=== PATIENT | female | born 1985 | race Two or more races ===

== ENCOUNTER 2020-06-10 10:54 | Outpatient (REF) | payer MEDICAID, SELFPAY ==
--- NOTE | 2020-06-10 | MM_ITS ---
EXAMINATION: MM SCREENING DIGITAL BREAST TOMOSYNTHESIS, BILATERAL CLINICAL INFORMATION: Screening. Asymptomatic. Age 35. Prereduction screening. The lifetime risk of breast cancer based on the Tyrer-Cuzick Model is 9%. COMPARISON: Mammography: 01/14/2018 (diagnostic baseline) TECHNIQUE: Digital breast tomosynthesis is performed in both the craniocaudal and mediolateral oblique views along with computer-aided detection (CAD). Synthesized 2D images are generated from the tomosynthesis. FINDINGS: There are scattered areas of fibroglandular density (ACR BI-RADS breast composition Category b). There are no significant masses, abnormal calcifications, or other abnormalities. No developing density. The skin contours are smooth. No significant changes. MM/MM tomosynthesis screening BI IMPRESSION: No mammographic evidence of malignancy. ASSESSMENT: BI-RADS 1: Negative RECOMMENDATION: Routine annual mammography screening. This patient's information was entered into a reminder system with a target due date for their next mammogram.
--- NOTE | 2020-06-10 11:38 | ECG_ITS ---
Test Reason : PREOP Blood Pressure : / mmHG Vent. Rate : 071 BPM Atrial Rate : 071 BPM P-R Int : 142 ms QRS Dur : 070 ms QT Int : 390 ms P-R-T Axes : 058 041 045 degrees QTc Int : 423 ms Normal sinus rhythm Normal ECG No previous ECGs available Referred By: Nonstaff Physician Electronically Signed By:ALANA LUGO MD
[2020-06-10 11:55] LABS: MANUAL DIFF FLAG NO
[2020-06-10 12:08] LABS: Prothrombin Time 12.3 SEC (10.8-13.0)
[2020-06-10 12:11] LABS: Partial Thromboplastin Time 33.2 SEC (24.1-38.0)
[2020-06-10 12:12] LABS: Basophils Absolute Auto 0.1 X10*3/uL (0.0-0.2); Basophils Percent Auto 0.7 % (0-2); Eosinophils Percent Auto 0.2 % (0-4); Hematocrit 34.3 % (37-47); Hemoglobin 11.5 g/dl (12.0-16.0); Imm Gran Abs Auto 0.05 X10*3/uL (0.00-0.03); Imm Gran Pct Auto 0.6 % (0.0-0.4); Lymphocytes Absolute Auto 2.2 X10*3/uL (1.2-4.9); Lymphocytes Percent Auto 26.6 % (20-40); Mean Corpuscular HGB Conc 33.5 g/dl (31.0-35.0); Mean Corpuscular Hemoglobin 30.6 pg (27.0-33.0); Mean Corpuscular Volume 91.2 fL (80-98); Mean Platelet Volume 10.5 fL (9.4-12.3); Monocytes Absolute Auto 0.6 X10*3/uL (0.1-1.2); Monocytes Percent Auto 7.9 % (2-11); Neutrophils Absolute Auto 5.2 X10*3/uL (2.0-8.3); Platelet Count 355 X10*3/uL (160-400); Red Blood Count 3.76 X10*6/uL (4.20-5.50); Red Cell Distribution Width 12.1 % (11.0-16.0); White Blood Count 8.1 X10*3/uL (4.8-10.8)
[2020-06-10 12:34] LABS: Alanine Aminotransferase 21 U/L (0-31); Albumin Level 4.3 g/dL (3.5-5.0); Alkaline Phosphatase 52 U/L (39-117); Anion Gap 11 (12-20); Aspartate Amino Transferase 21 U/L (5-31); Bilirubin Total 0.9 mg/dL (0.0-1.0); Blood Urea Nitrogen 14 mg/dL (9-16); Calcium 8.8 mg/dL (8.4-10.2); Carbon Dioxide 26 mmol/L (22-29); Chloride 106 mmol/L (96-108); Estimated Glomerular Filt Rate > 60; Glucose Random 74 mg/dL (60-115); Potassium 4.4 mmol/l (3.3-5.1); Sodium 139 mmol/L (135-145); Total Protein 6.9 g/dL (6.5-8.0)
[2020-06-10 12:35] LABS: HIV AB/AG Nonreactive (Nonreactive); HIV Num 1 0.15 S/CO (0.00-0.99)
[2020-06-10 12:42] LABS: Thyroid Stimulating Hormone 2.48 uIU/mL (0.32-4.0)
== END 2020-06-10 10:55 | disposition home or self-care (01) ==
LOC: HO.MAMMO 10:54
DX: Z12.31 Encounter for screening mammogram for malignant neoplasm of breast (principal); Z01.818 Encounter for other preprocedural examination; Z11.4 Encounter for screening for human immunodeficiency virus [HIV]; Z20.828 Contact with and (suspected) exposure to other viral communicable diseases
CPT/HCPCS: 36415; 77063; 77067; 80053; 84443; 85025; 85610; 85730; 87389; 93005; U0003

== ENCOUNTER 2020-06-22 21:13 | Emergency (ER) | payer MEDICAID, SELFPAY ==
--- NOTE | 2020-06-22 21:28 | CT_ITS ---
EXAMINATION: CT ABDOMEN AND PELVIS WITHOUT CONTRAST CLINICAL INFORMATION: 35-year-old female with left-sided flank pain and hematuria. History of tubal ligation. COMPARISON: Abdominal ultrasound 01/09/2018 and pelvic ultrasound 09/18/2017 TECHNIQUE: Multidetector volumetric imaging was performed from the superior aspect of the liver through the pubic symphysis. Sagittal and coronal reformatted images were obtained on the technologist's workstation. This CT examination was performed using dose optimization techniques as appropriate, variously including the following: *Automated exposure control *Adjustment of mA and/or kV according to patient size (this includes techniques or standardized protocols for targeted exams where dose is matched to indication/reason for exam; i.e. extremities or head) *Use of iterative reconstruction technique DLP: 471 mGy-cm FINDINGS: Visualized lung bases are well aerated. The liver demonstrates normal size, contour and attenuation. The gallbladder is decompressed. The pancreas, spleen and adrenal glands are unremarkable. Again noted are asymmetrically sized kidneys with the left kidney measuring approximately 11.5 cm in maximum dimension and the right kidney measuring approximately 7.5 cm in maximum dimension. There is some cortical irregularity particularly along the posterior aspect of the right kidney. There is a 1 cm cyst within the upper pole of the right kidney. No renal calculi or hydronephrosis of either kidney. Normal caliber loops of small and large bowel. Normal appendix. Nonaneurysmal abdominal aorta. The bladder is decompressed and therefore not accurately evaluated. Unremarkable CT appearance of the uterus. Trace amount of free pelvic fluid is likely physiologic. Suspected 3 [address] left adnexal cyst. CT/CT abdomen pelvis wo con IMPRESSION: 1. No renal calculi or hydronephrosis of either kidney. There is similar atrophy of the right kidney. 2. Suspected 3 cm left adnexal cyst.
--- NOTE | 2020-06-22 21:30 | ED_ITS ---
HPI - Abdominal Pain General Chief Complaint: Abdominal Pain Stated Complaint: abd pain Time Seen by Provider: 06/22/20 21:23 Source: patient Mode of arrival: ambulatory History of Present Illness HPI narrative: Patient states of 2-3 days of lower mid abdominal pain with blood in urine. Also states of left flank pain. Flank pain radiating the abdomen. Patient states when bends over has bilateral lower back pain also. Denies fevers or chills. Denies nausea or vomiting. Denies vaginal bleeding Pain Consistency: constant Location: L flank and suprapubic Severity: moderate Quality: cramping Related Data Previous Rx's Medication Instructions Recorded nitrofurantoin monohyd/m-cryst 100 mg PO Q12H 5 Days #10 cap 06/22/20 [Macrobid] phenazopyridine [Pyridium] 100 mg PO BID 2 Days #4 tab 06/22/20 Allergies Allergy/AdvReac Type Severity Reaction Status Date / Time No Known Allergies Allergy Unverified 04/14/20 19:01 [No Known Allergies*] none Allergy Unknown Uncoded 04/24/19 00:00 Review of Systems Review of Systems Constitutional : No Weight loss, No Fever, No Chills, No Night Sweats, No Fatigue, No Malaise ENT/Mouth : No Hearing loss, No Ear Pain, No Nasal Congestion, No Sinus Pain, No Hoarseness, No sore throat, No Rhinorrhea, No Swallowing Difficulty Eyes: No Eye Pain, No Swelling, No Redness, No Foreign Body, No Discharge, No Vision Changes Cardiovascular : No Chest Pain, No SOB, No Dyspnea on Exertion, No Orthopnea, No Edema, No Palpitations Respiratory : No Cough, No Sputum, No Wheezing, No Smoke Exposure, No Dyspnea Gastrointestinal : No Nausea, No Vomiting, No Diarrhea, No Constipation, positive abdominal Pain, No Hematochezia, No Melena Genitourinary : no irregular bleeding, positive Dysuria, No Urinary Frequency, No Hematuria, No Urinary Incontinence, No Urgency, No Flank Pain, No Urinary Flow Changes, No Hesitancy Musculoskeletal : No joint pain, No Myalgias, No Joint Swelling Skin : No Skin Lesions, No rash Neuro : No Weakness, No Numbness, No Paresthesias, No Loss of Consciousness, No Dizziness, No Headache Psych : No Anxiety/Panic, No Depression, No SI/HI/AH/VH, No Social Issues, Heme/Lymph: No Bruising, No Bleeding,No Lymphadenopathy Endocrine : No Polyuria, No Polydipsia, No Temperature Intolerance Physical Exam Vital Signs: Vital Signs: Last Vital Signs Pulse 71 06/22/20 21:37 Resp 18 06/22/20 21:37 BP 122/72 06/22/20 21:37 Pulse Ox 100 06/22/20 21:37 Appearance: Alert. Oriented X3. No acute distress. Eyes: Pupils equal, round and reactive to light. ENT: Pharynx normal. Neck: Normal inspection. Neck supple. No lymph nodes noted. No crepitus CVS: Normal heart rate and rhythm. Pulses normal. Normal S1 and S2 Respiratory: No respiratory distress. Breath sounds normal. No Wheezing. No rales Abdomen: Soft and positive tender to suprapubic area. No rigidity. No distention. good BS x4 Back: Tenderness to left flank with palpation. No ecchymosis. No abscess no lacerations or abrasions Skin: Skin warm and dry. Normal skin color. Normal skin turgor. Extremities: No lower extremity edema. Neurovascular intact to all extremities. No Lacerations. No Rash Neuro: Oriented X 3. No motor deficit. No sensory deficit. Moving all extermities. No slurred speech. MDM - Abdominal Pain MDM Narrative Medical decision making narrative: 35-year-old female with chief complaint of dysuria, suprapubic pain. Laboratory work within normal limits. Positive UTI in urine. CT scan negative for kidney stone. Patient not septic. Patient tolerating p.o. intake will discharge with p.o. medication Differential Diagnosis Differential diagnosis: Likely abdominal pain (UTI,), calculus of kidney and constipation Lab Data Attestation: I reviewed the patient's lab results. Result diagrams: 06/22/20 21:51 06/22/20 21:51 Labs: Lab Results 06/22/20 06/22/20 06/22/20 Range/Units 21:50 21:51 21:51 WBC 11.5 H (4.8-10.8) X10*3/uL RBC 3.49 L (4.20-5.50) X10*6/uL Hgb 10.8 L (12.0-16.0) g/dl Hct 31.7 L (37-47) % MCV 90.8 (80-98) fL MCH 30.9 (27.0-33.0) pg MCHC 34.1 (31.0-35.0) g/dl RDW 12.5 (11.0-16.0) % Plt Count 365 (160-400) X10*3/uL MPV 10.0 (9.4-12.3) fL Immature Gran % (Auto) 0.8 H (0.0-0.4) % Neut % (Auto) 60.1 (45-73) % Lymph % (Auto) 29.8 (20-40) % [place] % (Auto) 8.5 (2-11) % Eos % (Auto) 0.5 (0-4) % Baso % (Auto) 0.3 (0-2) % Lymph # (Auto) 3.4 (1.2-4.9) X10*3/uL [place] # (Auto) 1.0 (0.1-1.2) X10*3/uL Eos # (Auto) 0.1 (0.0-0.4) X10*3/uL Baso # (Auto) 0.0 (0.0-0.2) X10*3/uL Abs Immat Gran (auto) 0.09 H (0.00-0.03) X10*3/uL Absolute Neuts (auto) 6.9 (2.0-8.3) X10*3/uL Absolute Nucleated RBC 0.000 (0.0-0.012) X10*3/uL Nucleated RBC % (auto) 0.0 (0.0-0.2) /100WBC Sodium 138 (135-145) mmol/L Potassium 4.0 (3.3-5.1) mmol/l Chloride 107 (96-108) mmol/L Carbon Dioxide 24 (22-29) mmol/L Anion Gap 11 L (12-20) BUN 21 H (9-16) mg/dL Creatinine 0.77 (0.5-1.4) mg/dL Estim Creat Clear Calc TNP Estimated GFR > 60 Random Glucose 108 D (60-115) mg/dL Calcium 9.3 (8.4-10.2) mg/dL Total Bilirubin 0.5 (0.0-1.0) mg/dL Direct Bilirubin 0.2 (0.0-0.5) mg/dL AST 25 (5-31) U/L ALT 30 (0-31) U/L Alkaline Phosphatase 54 (39-117) U/L Total Protein 6.8 (6.5-8.0) g/dL Albumin 4.3 (3.5-5.0) g/dL Lipase 44 (8-78) U/L Urine Color YELLOW Urine Appearance HAZY Urine pH 5.5 (5.0-8.0) Ur Specific Corbett <= 1.005 (1.005-1.025) Urine Protein 1+ H (NEG-TRACE) MG/DL Urine Glucose (UA) NEG (NEG) MG/DL Urine Ketones NEG (NEG) MG/DL Urine Blood 3+ H (NEG) Urine Nitrite NEG (NEG) Ur Leukocyte Esterase 2+ H (NEG) Urine RBC 1-4 (0) /HPF Urine WBC 15-29 H (0-4) /HPF Ur Squamous Epith Cells NONE /LPF Urine Bacteria TRACE /LPF Discharge Plan Discharge Clinical Impression: UTI (urinary tract infection) Qualifiers: Urinary tract infection type: acute cystitis Hematuria presence: with hematuria Qualified Code(s): N30.01 - Acute cystitis with hematuria Patient Disposition: Home, Self-Care Instructions: Urinary Tract Infection in Women (ED), Dysuria (ED) Additional Instructions: Thank you for visiting the emergency department today. If your symptoms worsen or do not resolve completely please return to the emergency department immediately or call 911. If you have any questions please call your primary care physician Prescriptions: New nitrofurantoin monohyd/m-cryst [Macrobid] 100 mg capsule 100 mg PO Q12H 5 Days Qty: 10 RF: 0 phenazopyridine [Pyridium] 100 mg tablet 100 mg PO BID 2 Days Qty: 4 RF: 0 Referrals: [facility] [Provider Group] - 2 days Interventions: ED Discharge Assessment Last Done: 06/22/20 22:58 Discharge Date/Time: 06/22/20 23:01 COUNT INCLUDES THE [facility] Past Medical History Medical History (Updated 06/22/20 @ 22:42 by Jermaine Wright DO) Tubal ligation evaluation Family History Family History (Updated 06/22/20 @ 21:32 by Jermaine Wright DO) Other Family history non-contributory Social History Social History (Updated 06/22/20 @ 21:33 by Jermaine Wright DO) Household Members: Family Alcohol intake: never Smoking Status: Never smoker Use of substances other than those prescribed or required for medical reasons: No Advance Directives: No Advance Directives Information Provided: Yes
[2020-06-22 21:37] VITALS: BP 122/72; PULSE 71; RESP 18; O2SAT 100
[2020-06-22] MEDS: Ketorolac Tromethamine 30 MG/ML VIAL IVPUSH (21:51)
[2020-06-22] MEDS: 0.9 % Sodium Chloride 1,000 ML 999 ML IVCONT (21:51)
[2020-06-22 21:58] LABS: MANUAL DIFF FLAG NO
[2020-06-22 22:00] LABS: Glucose Urine UA NEG (NEG); Leukocyte Esterase Urine 2+ (NEG); Nitrite Urine NEG (NEG); PH 5.5 (5.0-8.0); Specific Gravity - Urine <= 1.005 (1.005-1.025); Urine Blood 3+ (NEG); Urine Ketones NEG (NEG); Urine Protein 1+ MG/DL (NEG-TRACE)
[2020-06-22 22:03] LABS: Basophils Percent Auto 0.3 % (0-2); Eosinophils Absolute Auto 0.1 X10*3/uL (0.0-0.4); Eosinophils Percent Auto 0.5 % (0-4); Hematocrit 31.7 % (37-47); Hemoglobin 10.8 g/dl (12.0-16.0); Imm Gran Abs Auto 0.09 X10*3/uL (0.00-0.03); Imm Gran Pct Auto 0.8 % (0.0-0.4); Lymphocytes Absolute Auto 3.4 X10*3/uL (1.2-4.9); Lymphocytes Percent Auto 29.8 % (20-40); Mean Corpuscular HGB Conc 34.1 g/dl (31.0-35.0); Mean Corpuscular Hemoglobin 30.9 pg (27.0-33.0); Mean Corpuscular Volume 90.8 fL (80-98); Monocytes Percent Auto 8.5 % (2-11); Neutrophils Absolute Auto 6.9 X10*3/uL (2.0-8.3); Neutrophils Percent Auto 60.1 % (45-73); Platelet Count 365 X10*3/uL (160-400); Red Blood Count 3.49 X10*6/uL (4.20-5.50); Red Cell Distribution Width 12.5 % (11.0-16.0); White Blood Count 11.5 X10*3/uL (4.8-10.8)
[2020-06-22 22:17] LABS: Color Urine YELLOW
[2020-06-22 22:18] LABS: Appearance Urine HAZY
[2020-06-22 22:22] LABS: Alanine Aminotransferase 30 U/L (0-31); Albumin Level 4.3 g/dL (3.5-5.0); Alkaline Phosphatase 54 U/L (39-117); Anion Gap 11 (12-20); Aspartate Amino Transferase 25 U/L (5-31); Bilirubin Direct 0.2 mg/dL (0.0-0.5); Bilirubin Total 0.5 mg/dL (0.0-1.0); Blood Urea Nitrogen 21 mg/dL (9-16); Calcium 9.3 mg/dL (8.4-10.2); Carbon Dioxide 24 mmol/L (22-29); Chloride 107 mmol/L (96-108); Estimated Glomerular Filt Rate > 60; Glucose Random 108 mg/dL (60-115); Lipase 44 U/L (8-78); Sodium 138 mmol/L (135-145); Total Protein 6.8 g/dL (6.5-8.0)
[2020-06-22 22:28] LABS: Bacteria Urine TRACE /LPF
[2020-06-22] MEDS: Phenazopyridine HCL 100 MG TABLET PO (22:56)
[2020-06-22] MEDS: Nitrofurantoin Monohyd/M-Cryst 100 MG CAPSULE PO (22:56)
== END 2020-06-22 23:01 | disposition home or self-care (01) ==
PROVIDERS: Emergency Provider Emergency Medicine
DX: N30.01 Acute cystitis with hematuria (principal); R10.9 Unspecified abdominal pain; Z79.899 Other long term (current) drug therapy
CPT/HCPCS: 36415; 74176; 80048; 80076; 81001; 81003; 83690; 85025; 87086; 87147; 99284; J1885

== ENCOUNTER 2020-07-04 10:55 | Outpatient (REF) | payer MEDICAID, SELFPAY | END 2020-07-04 10:56 | disposition home or self-care (01) | LOC: HO.LAB 10:55 | PROVIDERS: Visit Provider Internal Medicine | DX: Z20.828 Contact with and (suspected) exposure to other viral communicable diseases (principal) | CPT/HCPCS: C9803; U0003 ==

== ENCOUNTER 2020-07-04 11:22 | Outpatient (REF) | payer MEDICAID, SELFPAY ==
[2020-07-04 12:03] LABS: Hematocrit 35.4 % (37-47); Hemoglobin 11.8 g/dl (12.0-16.0); Mean Corpuscular HGB Conc 33.3 g/dl (31.0-35.0); Mean Corpuscular Hemoglobin 30.6 pg (27.0-33.0); Mean Corpuscular Volume 91.7 fL (80-98); Platelet Count 381 X10*3/uL (160-400); Red Blood Count 3.86 X10*6/uL (4.20-5.50); Red Cell Distribution Width 12.6 % (11.0-16.0); White Blood Count 10.3 X10*3/uL (4.8-10.8)
== END 2020-07-04 11:23 | disposition home or self-care (01) ==
LOC: HO.LAB 11:22
PROVIDERS: Visit Provider Surgery
DX: Z01.818 Encounter for other preprocedural examination (principal)
CPT/HCPCS: 36415; 85027

== ENCOUNTER 2020-08-08 09:19 | Outpatient (REF) | payer MEDICAID, SELFPAY | END 2020-08-08 09:20 | disposition home or self-care (01) | LOC: HO.LAB 09:19 | PROVIDERS: Visit Provider Internal Medicine | DX: Z20.822 Contact with and (suspected) exposure to COVID-19 (principal) | CPT/HCPCS: 36415; C9803; U0003 ==

== ENCOUNTER 2020-08-23 09:44 | Outpatient (REF) | payer MEDICAID, SELFPAY ==
--- NOTE | 2020-08-23 09:54 | XR_ITS ---
EXAMINATION: XR RIBS, LEFT CLINICAL INFORMATION: Trauma COMPARISON: None TECHNIQUE: 3 views of the left ribs and one view of the chest were obtained. FINDINGS: Lungs are clear. No consolidation, pneumothorax, or pleural effusion. The cardiomediastinal silhouette and pulmonary vasculature are normal. Osseous structures are unremarkable. Ribs are intact. No fractures are identified. XR/XR ribs LT min 3V w CXR1V IMPRESSION: Unremarkable examination.
== END 2020-08-23 09:45 | disposition home or self-care (01) ==
LOC: HO.XRAY 09:44
PROVIDERS: PCP General Practice; Visit Provider General Practice
DX: S29.9XXA Unspecified injury of thorax, initial encounter (principal); X58.XXXA Exposure to other specified factors, initial encounter; Y93.9 Activity, unspecified; Y92.9 Unspecified place or not applicable
CPT/HCPCS: 71101

== ENCOUNTER 2020-09-20 09:58 | Outpatient (REF) | payer MEDICAID, SELFPAY ==
--- NOTE | 2020-09-20 10:27 | ECG_ITS ---
Test Reason : PREOP Blood Pressure : / mmHG Vent. Rate : 074 BPM Atrial Rate : 074 BPM P-R Int : 134 ms QRS Dur : 082 ms QT Int : 378 ms P-R-T Axes : 062 043 047 degrees QTc Int : 419 ms Normal sinus rhythm with sinus arrhythmia Normal ECG When compared to the previous EKG of No significant changes seen Referred By: Don Mcfarlane Electronically Signed By:MANJULA PALACIOS MD
[2020-09-20 10:46] LABS: Hematocrit 34.9 % (37-47); Mean Corpuscular HGB Conc 34.4 g/dl (31.0-35.0); Mean Corpuscular Hemoglobin 31.6 pg (27.0-33.0); Mean Corpuscular Volume 91.8 fL (80-98); Platelet Count 350 X10*3/uL (160-400); Red Cell Distribution Width 12.4 % (11.0-16.0); White Blood Count 8.8 X10*3/uL (4.8-10.8)
[2020-09-20 11:00] LABS: INTERNATIONAL NORM RATIO 1.1 (0.9-1.1); Prothrombin Time 12.5 SEC (10.8-13.0)
[2020-09-20 11:02] LABS: Partial Thromboplastin Time 31.8 SEC (24.1-38.0)
[2020-09-20 11:08] LABS: Alanine Aminotransferase 16 U/L (0-31); Albumin Level 4.5 g/dL (3.5-5.0); Alkaline Phosphatase 60 U/L (39-117); Aspartate Amino Transferase 15 U/L (5-31); Bilirubin Total 0.8 mg/dL (0.0-1.0); Blood Urea Nitrogen 19 mg/dL (9-16); Calcium 9.4 mg/dL (8.4-10.2); Estimated Glomerular Filt Rate > 60; Glucose Random 102 mg/dL (60-115); Total Protein 7.5 g/dL (6.5-8.0)
[2020-09-20 11:21] LABS: Anion Gap 12 (12-20); Carbon Dioxide 25 mmol/L (22-29); Chloride 107 mmol/L (96-108); Potassium 4.3 mmol/L (3.3-5.1); Sodium 140 mmol/L (135-145)
[2020-09-20 11:22] LABS: HIV AB/AG Nonreactive (Nonreactive); HIV Num 1 0.05 S/CO (0.00-0.99)
[2020-09-20 11:27] LABS: Thyroid Stimulating Hormone 1.79 uIU/mL (0.32-4.0)
== END 2020-09-20 09:59 | disposition home or self-care (01) ==
LOC: HO.LAB 09:58
PROVIDERS: Visit Provider Internal Medicine
DX: Z01.818 Encounter for other preprocedural examination (principal)
CPT/HCPCS: 36415; 80053; 84443; 85027; 85610; 85730; 87389; 93005

== ENCOUNTER 2020-10-04 15:53 | Outpatient (REF) | payer MEDICAID, SELFPAY | END 2020-10-04 15:54 | disposition home or self-care (01) | LOC: HO.LAB 15:53 | PROVIDERS: Visit Provider Internal Medicine | DX: Z20.822 Contact with and (suspected) exposure to COVID-19 (principal) | CPT/HCPCS: 36415; 87635; C9803; U0003; U0005 ==

== ENCOUNTER → 2021-03-09 11:08 | Outpatient (BNVA) | payer MEDICAID, SELFPAY | PROVIDERS: PCP General Practice | DX: N39.0 Urinary tract infection, site not specified (principal) | CPT/HCPCS: 99202 ==

== ENCOUNTER 2021-04-17 09:32 | Outpatient (REF) | payer MEDICAID, SELFPAY | END 2021-04-17 09:33 | disposition home or self-care (01) | LOC: HO.LAB 09:32 | PROVIDERS: Visit Provider Internal Medicine | DX: Z20.822 Contact with and (suspected) exposure to COVID-19 (principal) | CPT/HCPCS: C9803; U0003; U0005 ==

== ENCOUNTER 2021-07-24 09:58 | Outpatient (REF) | payer MEDICAID, SELFPAY ==
[2021-07-24 12:14] LABS: COVID-19 Test Positive (Negative)
== END 2021-07-24 09:59 | disposition home or self-care (01) ==
LOC: HO.LAB 09:58
PROVIDERS: Visit Provider Internal Medicine
DX: Z20.822 Contact with and (suspected) exposure to COVID-19 (principal)
CPT/HCPCS: 36415; 87635; C9803

== ENCOUNTER 2023-01-09 11:00 | Outpatient (REF) | payer MEDICAID, SELFPAY ==
[2023-01-15 22:13] LABS: HPV mRNA E6/E7 rflx Not Detected (Not Detected)
== END 2023-01-09 11:01 | disposition home or self-care (01) ==
LOC: HO.LNP 11:00
PROVIDERS: PCP General Practice; Visit Provider Advanced Practice Midwife
DX: Z01.419 Encounter for gynecological examination (general) (routine) without abnormal findings (principal); Z11.51 Encounter for screening for human papillomavirus (HPV)
CPT/HCPCS: 0353U; 86780; 86803; 87340; 87389; 87480; 87510; 87624; 87660; 88142

== ENCOUNTER 2023-01-09 12:08 | Outpatient (REF) | payer MEDICAID, SELFPAY ==
[2023-01-09 14:02] LABS: HBsAGNum1 0.28 S/CO (0.00-0.99); HIV AB/AG Nonreactive (Nonreactive); HIV Num 1 0.05 S/CO (0.00-0.99); Hepatitis B Surface Antigen Negative (Negative); Syphilis Screen Nonreactive (Nonreactive); ~HepC Num1 0.06 S/CO (0.00-0.79); ~Hepatitis C Antibody Nonreactive (Nonreactive)
[2023-01-10 01:29] LABS: CT PCR NOT DETECTED (Not Detect.); NG PCR NOT DETECTED (Not Detect.)
[2023-01-10 09:21] LABS: BV Int Neg Control Negative (Negative); BV Int Pos Control Positive (Positive)
== END 2023-01-09 12:09 | disposition home or self-care (01) ==
LOC: HO.LAB 12:08
PROVIDERS: Visit Provider Advanced Practice Midwife
DX: Z01.419 Encounter for gynecological examination (general) (routine) without abnormal findings (principal); Z11.3 Encounter for screening for infections with a predominantly sexual mode of transmission; Z11.4 Encounter for screening for human immunodeficiency virus [HIV]
CPT/HCPCS: 0353U; 86780; 86803; 87340; 87389; 87480; 87510; 87660

== ENCOUNTER 2023-07-18 08:26 | Outpatient (REF) | payer MEDICAID, SELFPAY ==
[2023-07-18 14:34] LABS: Hematocrit 34.6 % (37.0-47.0); Hemoglobin 11.6 g/dl (12.0-16.0); Mean Corpuscular HGB Conc 33.5 g/dl (31.0-35.0); Mean Corpuscular Volume 92.5 fL (80.0-98.0); Mean Platelet Volume 10.5 fL (9.4-12.3); Platelet Count 362 X10*3/uL (160-400); Red Blood Count 3.74 X10*6/uL (4.20-5.50); Red Cell Distribution Width 12.2 % (11.0-16.0); White Blood Count 5.9 X10*3/uL (4.8-10.8)
[2023-07-18 14:53] LABS: Alanine Aminotransferase 24 U/L (0-31); Albumin Level 4.3 g/dL (3.5-5.0); Alkaline Phosphatase 52 U/L (39-117); Anion Gap 12 (12-20); Aspartate Amino Transferase 23 U/L (5-31); Bilirubin Total 0.5 mg/dL (0.0-1.0); Blood Urea Nitrogen 18 mg/dL (9-16); Calcium 9.3 mg/dL (8.4-10.2); Carbon Dioxide 24 mmol/L (22-29); Chloride 106 mmol/L (96-108); Cholesterol 209 mg/dL (<200); Estimated Glomerular Filt Rate > 60; Glucose Random 79 mg/dL (60-115); HDL Cholesterol 57 mg/dL (>40); LDL Cholesterol Calculated 138 mg/dL (<100); Potassium 3.9 mmol/L (3.3-5.1); Sodium 138 mmol/L (135-145); Total Protein 7.2 g/dL (6.5-8.0); Triglycerides 74 mg/dL (<150)
[2023-07-18 15:17] LABS: Folate 11.2 ng/mL (> or = 4.0); Vitamin B12 507 pg/mL (200-900)
[2023-07-19 08:13] LABS: HIV AB/AG Nonreactive (Nonreactive); HIV Num 1 0.04 S/CO (0.00-0.99)
== END 2023-07-18 08:27 | disposition home or self-care (01) ==
LOC: HO.CHCLDS 08:26
PROVIDERS: Visit Provider Internal Medicine
DX: Z11.4 Encounter for screening for human immunodeficiency virus [HIV] (principal); E78.00 Pure hypercholesterolemia, unspecified; R53.83 Other fatigue
CPT/HCPCS: 36415; 80053; 80061; 82607; 82746; 84443; 85027; 87389

== ENCOUNTER 2023-08-01 14:44 | Outpatient (REF) | payer MEDICAID, SELFPAY | END 2023-08-01 14:45 | disposition home or self-care (01) | LOC: HO.MAMMO 14:44 | PROVIDERS: PCP Internal Medicine; Visit Provider Internal Medicine | DX: Z12.31 Encounter for screening mammogram for malignant neoplasm of breast (principal) | CPT/HCPCS: 77063; 77067 ==

== ENCOUNTER → 2023-08-01 15:15 | Outpatient (BNV) | payer MEDICAID, SELFPAY | PROVIDERS: PCP Internal Medicine; Visit Provider Radiology Diagnostic Radiology | DX: Z12.31 Encounter for screening mammogram for malignant neoplasm of breast (principal) | CPT/HCPCS: 77063; 77067 ==

== ENCOUNTER 2023-11-22 13:24 | Outpatient (AMB) | payer MEDICAID, SELFPAY ==
--- NOTE | 2023-11-22 13:26 | A.OFFVIS_ITS ---
Vital Signs 11/22/23 13:35 Height 5 ft 1 in Weight 151 lb 2 oz BMI 28.6 BP 112/60 Blood Pressure Location Lt brachial Position Sitting Pulse 68 Pulse Source Pulse Oximeter Pulse Oximetry (%) 94 Oxygen Delivery Method Room Air Intake Visit Reasons: ENP-MEL/ Confirmed Intake Note: Patient presents for MEL. Can't sleep at night, snores a lot and wakes up gasping for air. During the day feels very tired and fatigue. Allergies No Known Allergies [No Known Allergies*] Allergy (Verified 11/22/23 13:32) none Allergy (Unknown, Uncoded 01/09/23 11:13) none HPI Comments Details: 38 y/o female patient presents for new in-person visit for sleep consultation. Pt reports snoring, wakes up with gasping, and disrupted sleep. Pt having non refreshing sleep with daytime sleepiness. She always wakes up 1-2 am and then having difficulty go back to sleep. Sleep questionnaire: Have you ever been diagnosed with a sleep disorder? No. Have you ever had a sleep study in the past? No. Have you ever been treated for a sleep disorder? No. Do you take medications for a sleep disorder? No. Do you snore? Yes. Do you wake up gasping at night? Yes. Do you have episodes of apneas? No. If yes, are they witnessed? No. Do you have episodes of nocturnal chest pain or dyspnea? Yes. Do you have difficulty initiating sleep? Yes. Do you have difficulty maintaining sleep? Yes. Do you wake up tired? Yes. Do you have headaches upon awakening? Yes. Do you wake up with dry mouth or throat? Yes. Do you have GERD? Yes. Do you have nocturia? Yes. Do you have nocturnal leg cramps? Yes. Do you have symptoms of restless legs? No. Do you act out your dreams? No. Sleep hygiene questionnaire: What is your usual sleep routine? Usual bedtime is at 10:30 -11 pm; Usual wake up time is at 1-2 am, back to sleep 4 am and then 6 am . Do you take naps? No. Is your sleep environment cool, dark, and quiet? Yes. Do you exercise? No. Do you take caffeine or other stimulants? Coffee in the morning. Do you use electronics in bed? Yes. What is your work schedule? 6 am to 2:30 pm. Hypersomnolence questionnaire: Do you have daytime tiredness or fatigue? Yes. Do you easily fall asleep when inactive? No. Have you ever had episodes of sudden weakness? No. Have you ever had episodes of sudden weakness associated with strong emotions? No. [facility] Medical History (Updated 11/22/23 @ 13:55 by Shiva Patton CNP) Chronic UTI Gassiness GERD (gastroesophageal reflux disease) H. pylori infection Constipation Nausea Postprandial epigastric pain Tubal ligation evaluation Surgical History Hx of tubal ligation History of surgery Family History Other Family history non-contributory Social History Household Members: Family Alcohol intake: current Alcohol intake frequency: a few times a week Female Reproductive History Menstrual Age of Menarche: 11 Review of Systems Const All systems reviewed & are unremarkable except as noted in HPI and below Physical Exam Vital Signs: Last Vital Signs Pulse 68 11/22/23 13:35 BP 112/60 11/22/23 13:35 Pulse Ox 94 11/22/23 13:35 Oxygen Delivery Method Room Air 11/22/23 13:35 BMI result Body Mass Index 28.6 Const General: cooperative Nutritional Appearance: overweight Orientation/consciousness: patient oriented x3 Neck Neck: Yes full ROM and Yes supple Resp Effort & Inspection: normal respiratory effort and able to speak in complete sentences Neuro General: patient oriented x3 and gait normal Cranial nerves: Yes CN's II-XII intact bilaterally Motor exam (neuro): 5/5 motor strength present throughout Psych Appearance: grossly normal Mental Status: mental status grossly normal Speech and movement: Normal speech and movement present Affect: normal affect Attitude: cooperative Assessment & Plan Assessment & Plan (1) Daytime sleepiness: Code(s): R40.0 - Somnolence Category: Medical (2) Snoring: Code(s): R06.83 - Snoring Category: Medical Plan Pt is advised to undergo home sleep study to assess for sleep apnea. Will f/u with pt after study to discuss results and appropriate treatment options. Sleep hygiene education provided, limit electronic use before bedtime. Increase physical activities, encouraged daily exercise. Advised patient to try melatonin 3 mg along with magneisum 400 mg qHS. Pt to call with any worsening concerns or questions. Orders: Orders RT home sleep study Today R06.83 - Snoring, R40.0 - Somnolence Medications: New melatonin 3 mg PO BEDTIME 30 days 30 tabs 5RF sleep magnesium oxide 400 mg PO DAILY 30 days 30 tabs 5RF Coding Level of Care Code New Pt Level 3 (15963) Diagnoses Daytime sleepiness R40.0 Snoring R06.83
[2023-11-22 13:35] VITALS: BP 112/60; PULSE 68; O2SAT 94; BMI 28.6
== END 2023-11-22 14:12 | disposition home or self-care (01) ==
PROVIDERS: PCP Internal Medicine; Visit Provider Nurse Practitioner Family
DX: R40.0 Somnolence (principal); R06.83 Snoring
CPT/HCPCS: 99203

== ENCOUNTER → 2023-11-22 13:24 | Outpatient (BNVA) | payer MEDICAID, SELFPAY | PROVIDERS: PCP Internal Medicine; Visit Provider Nurse Practitioner Family | DX: R40.0 Somnolence (principal); R06.83 Snoring | CPT/HCPCS: 99212 ==

== ENCOUNTER 2024-01-27 18:13 | Outpatient (REF) | payer MEDICAID, SELFPAY | END 2024-01-27 18:14 | disposition home or self-care (01) | LOC: HO.HHCLNP 18:13 | PROVIDERS: Visit Provider Registered Nurse | DX: R39.9 Unspecified symptoms and signs involving the genitourinary system (principal) | CPT/HCPCS: 87086; 87088; 87186 ==

== ENCOUNTER 2024-02-07 14:14 | Outpatient (REF) | payer MEDICAID, SELFPAY | END 2024-02-07 14:15 | disposition home or self-care (01) | LOC: HO.LAB 14:14 | PROVIDERS: PCP Internal Medicine; Visit Provider Advanced Practice Midwife | DX: Z01.419 Encounter for gynecological examination (general) (routine) without abnormal findings (principal) | CPT/HCPCS: 99396 ==

== ENCOUNTER 2024-02-07 14:14 | Outpatient (AMB) | payer MEDICAID, SELFPAY ==
--- NOTE | 2024-02-07 14:26 | MHC.OFFVIS ---
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 Operations Trainer Services: Operations Trainer Present Information Interpreted: clinical only Trust Administrator: Trust Administrator Present Allergies No Known Allergies [No Known Allergies*] Allergy (Verified 02/07/24 14:28) none Allergy (Unknown, Uncoded 02/07/24 14:28) none Medication List - Last Reconciled 02/07/24 by Carole Garcia CNM ibuprofen 400 mg PO Q6H PRN magnesium oxide 400 mg PO DAILY 30 days melatonin 3 mg PO BEDTIME 30 days Is last menstrual period known: Yes Last menstrual period: 01/11/24 Do you need a note to return to daycare/school/sports/work: No HPI HPI 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 She is drinking cranberry juice I recommended to her that she drink unsweetened cranberry juice to avoid the extra calories of the fructose corn syrup. Also I recommend she drink lots and lots of water to help flush out any bacteria. She does notice a little bit of white discharge but no odor or itching and she has not particularly worried about Infection but wants testing. Her last Pap smear showed ASCUS with negative HPV and though ASCCP recommends 3 year follow-up I am planning to repeat her Pap today out of an abundance of caution. She is due for her menses today but has not gotten it yet. [facility] Medical History Chronic UTI Gassiness GERD (gastroesophageal reflux disease) H. pylori infection Constipation Nausea Postprandial epigastric pain Tubal ligation evaluation Surgical History Hx of tubal ligation History of surgery Family History Other Family history non-contributory Social History Household Members: Family Alcohol intake: current Alcohol intake frequency: a few times a week Female Reproductive History Menstrual Age of Menarche: 11 Duration of menses: 3-5 days Date of last menstrual period: 01/11/24 control method: permanent sterilization Total pregnancies: 2 Full term: 2 Date of last pap smear: 01/10/23 (epithelial cell abnormality, 2016 WNL) History of abnormal pap smear: Yes Physical Exam Vital Signs: Last Vital Signs BP 110/68 02/07/24 14:27 BMI result Body Mass Index 29.7 Const General: healthy appearing, comfortable, no acute distress, well developed and alert Nutritional Appearance: average body habitus Orientation/consciousness: patient oriented x3 Limitations: no limitations HEENT Head: Yes normocephalic Neck Neck: Yes normal visual inspection Chest Chest palpation & inspection: normal inspection of the chest Breast/axilla inspection: normal inspection of the breasts and normal inspection of the axillae Breast/axilla palpation: normal palpation of the breasts and normal palpation of the axillae Resp Effort & Inspection: normal respiratory effort GI Inspection: Yes normal to inspection, No Abdominal wall edema and No distended Palpation (GI): Soft to palpation and nontender Other: Vagina pink and moist. Multiparous cervix pink smooth long thick closed mobile nontender uterus small anteverted mobile nontender easily palpated abdominally adnexa nontender extremely good tone with Kegel. Left labia slightly larger then right patient states it is nontender. General: Yes bladder normal to palpation External Female Exam: normal external appearance and normal appearance of the urethra Speculum Exam - Vagina: normal appearance of the vagina, normal palpation and normal vaginal discharge Speculum Exam - Cervix: normal appearance of the cervix, normal palpation and nontender Bimanual exam- vagina & uterus: normal bimanual exam, normal palpation, uterine size normal, bladder normal to palpation, consistency normal, normal palpation, uterine mobility normal, uterine shape normal, No Cervical tenderness present, non-tender and no cervical motion tenderness Bimanual Exam- Adnexa, other: normal adnexae, no masses, normal and No adnexal tenderness Neuro General: patient oriented x3 Results Reviewed Results Reviewed: Name: Elizabeth Baez Age/Sex: 37/F Attending: Carole Garcia CNM: 1985 Submitted by: Carole Garcia CNM Copies to: BURT SANCHES MD MR #: [id number] Status: DEP REF Collected: 01/09/23 Location: [facility] Received: 01/10/23 Interpretation General Category: Epithelial cell abnormality. Adequacy: Endocervical component present. Interpretation: Atypical squamous cells of undetermined significance. HPV mRNA E6/E7: Not Detected This assay detects E6/E7 viral messenger RNA (mRNA) from 14 high-risk HPV types (16, 18, 31, 33, 35, 39, 45, 51, 52, 56, 58, 59, 66, 68) HPV testing performed by [facility], [place], [place]. See reference laboratory portion of the EMR for entire report. Clinical Information LMP: 12/27/22 Previous PAP test: 2016, WNL Material Received ThinPrep-Cervical Copies To BURT SANCHES MD [address] [place] [id number] [address] Terry [address] [place] [id number] Electronically Signed By: Iggy Hudson MD 02/01/23 0958 The Pap Test is a screening procedure with the inherent possibility of both false negative and false positive results. Results should be interpreted in the context of historic and current clinical findings. Reliability of the Pap Test is enhanced by performing the test on a regular repetitive basis. Patient: Elizabeth Baez Age/Sex: 37/F MR#: [id number] Page 1 of 1 Assessment & Plan Assessment & Plan (1) Cervical cancer screening: Comment: 01/09/2023 Pap it shows ASCUS with negative HPV. ASCCP recommends 3 year follow-up.-consider repeat next year.mo'b Code(s): Z12.4 - Encounter for screening for malignant neoplasm of cervix Category: Medical (2) Breast cancer screening: Code(s): Z12.39 - Encounter for other screening for malignant neoplasm of breast Category: Medical (3) Well woman exam with routine gynecological exam: Code(s): Z01.419 - Encounter for gynecological examination (general) (routine) without abnormal findings Category: Medical (4) Screen for sexually transmitted diseases: Code(s): Z11.3 - Encounter for screening for infections with a predominantly sexual mode of transmission Category: Medical Plan -----Discussed in this visit the following: healthy balanced diet, regular and consistent exercise, getting recommended health screens, doing the best she can for her particular health concerns, kegel exercises, pap smear screening and followup recommendations, mammography screening and SBE, normal changes in cycles in her life stage--- .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 She is drinking cranberry juice I recommended to her that she drink unsweetened cranberry juice to avoid the extra calories of the fructose corn syrup. Also I recommend she drink lots and lots of water to help flush out any bacteria. She does notice a little bit of white discharge but no odor or itching and she has not particularly worried about Infection but wants testing. Her last Pap smear showed ASCUS with negative HPV and though ASCCP recommends 3 year follow-up I am planning to repeat her Pap today out of an abundance of caution. She accepted cultures but had no other concern and did not need blood work for STI. Coding Level of Care Code Est Pt Prev Care 40-64y(09836) Diagnoses Cervical cancer screening Z12.4 Breast cancer screening Z12.39 Well woman exam with routine gynecological exam Z01.419 Screen for sexually transmitted diseases Z11.3
[2024-02-07 14:27] VITALS: BP 110/68; BMI 29.7
== END 2024-02-07 15:39 | disposition home or self-care (01) ==
LOC: HO.HWSM 14:14
PROVIDERS: PCP Internal Medicine; Visit Provider Advanced Practice Midwife
DX: Z12.4 Encounter for screening for malignant neoplasm of cervix (principal); Z12.39 Encounter for other screening for malignant neoplasm of breast; Z01.419 Encounter for gynecological examination (general) (routine) without abnormal findings; Z11.3 Encounter for screening for infections with a predominantly sexual mode of transmission
CPT/HCPCS: 99396

== ENCOUNTER 2024-02-07 15:54 | Outpatient (REF) | payer MEDICAID, SELFPAY ==
[2024-02-11 06:01] LABS: CT PCR NOT DETECTED (Not Detect.); NG PCR NOT DETECTED (Not Detect.)
[2024-02-11 10:47] LABS: Bacterial Vaginosis PCR NEGATIVE (Negative); Candida Group PCR NOT DETECTED (Not Detect); Candida glab krusei PCR NOT DETECTED (Not Detect); Trichomonas vaginalis PCR NOT DETECTED (Not Detect)
[2024-02-14 06:09] LABS: HPV mRNA E6/E7 Detected (Not Detected)
== END 2024-02-07 15:55 | disposition home or self-care (01) ==
LOC: HO.LNP 15:54
PROVIDERS: Visit Provider Advanced Practice Midwife
DX: Z01.419 Encounter for gynecological examination (general) (routine) without abnormal findings (principal); Z11.51 Encounter for screening for human papillomavirus (HPV); Z20.2 Contact with and (suspected) exposure to infections with a predominantly sexual mode of transmission; N89.8 Other specified noninflammatory disorders of vagina
CPT/HCPCS: 0352U; 87491; 87591; 87624; 88175; 99396

== ENCOUNTER 2024-02-17 11:31 | Outpatient (REF) | payer MEDICAID, SELFPAY ==
[2024-02-17 13:19] LABS: Appearance Urine Clear; Color Urine Yellow; Glucose Urine UA Negative (Negative); Leukocyte Esterase Urine Negative (Negative); Nitrite Urine Negative (Negative); PH 5.5 (5.0-9.0); Specific Gravity - Urine <= 1.005 (1.005-1.025); Urine Blood Negative (Negative); Urine Ketones Negative (Negative); Urine Protein Negative (Neg-Trace)
[2024-02-17 13:34] LABS: Bacteria Urine None Seen (None Seen); Hyaline Casts Urine 0-2 /LPF (0-2); RBC Urine 0-2 /HPF (0-2); Squamous Epithelial Cell Urine 0-2 /HPF (0-2); WBC Urine 0-5 /HPF (0-5)
== END 2024-02-17 11:32 | disposition home or self-care (01) ==
LOC: HO.HHCL 11:31
PROVIDERS: Visit Provider Registered Nurse
DX: R81 Glycosuria (principal)
CPT/HCPCS: 81001

== ENCOUNTER 2024-02-18 08:54 | Outpatient (REF) | payer MEDICAID, SELFPAY ==
[2024-02-18 13:20] LABS: Adenovirus F 40/41 Not Detected (Not Detect.); Astrovirus Not Detected (Not Detect.); Campylobacter Not Detected (Not Detect.); Cryptosporidium Not Detected (Not Detect.); Cyclospora cayetanensis Not Detected (Not Detect.); E. coli EAEC Not Detected (Not Detect.); E. coli EPEC Not Detected (Not Detect.); E. coli ETEC Not Detected (Not Detect.); E. coli STEC Not Detected (Not Detect.); Entamoeba histolytica Not Detected (Not Detect.); Giardia lamblia Not Detected (Not Detect.); Norovirus GI/GII Not Detected (Not Detect.); Plesiomonas shigelloides Not Detected (Not Detect.); Rotavirus A Not Detected (Not Detect.); Salmonella Not Detected (Not Detect.); Sapovirus Not Detected (Not Detect.); Shigella sp./EIEC Not Detected (Not Detect.); Vibrio Not Detected (Not Detect.); Vibrio Cholerae Not Detected (Not Detect.); Yersinia enterocolitica Not Detected (Not Detect.)
== END 2024-02-18 08:55 | disposition home or self-care (01) ==
LOC: HO.HHCLNP 08:54
PROVIDERS: Visit Provider Emergency Medicine
DX: R10.13 Epigastric pain (principal); R19.7 Diarrhea, unspecified; R11.0 Nausea
CPT/HCPCS: 87177; 87209; 87338; 87507

== ENCOUNTER 2024-03-11 07:41 | Outpatient (REF) | payer MEDICAID, SELFPAY ==
[2024-03-11 14:28] LABS: CT PCR NOT DETECTED (Not Detect.); NG PCR NOT DETECTED (Not Detect.)
== END 2024-03-11 07:42 | disposition home or self-care (01) ==
LOC: HO.LNP 07:41
PROVIDERS: PCP Internal Medicine; Visit Provider Obstetrics & Gynecology
DX: R10.2 Pelvic and perineal pain (principal)
CPT/HCPCS: 87491; 87591; 99202

== ENCOUNTER 2024-03-11 07:41 | Outpatient (AMB) | payer MEDICAID, SELFPAY ==
[2024-03-11 07:47] VITALS: BP 118/66; BMI 29.6
--- NOTE | 2024-03-11 07:47 | MHC.OFFVIS ---
Vital Signs 03/11/24 07:47 Height 5 ft 1 in Weight 156 lb 8.451 oz BMI 29.6 BP 118/66 Intake Visit Reasons: pelvic pain Intake Note: c/o of 2 weeks with pelvic pain Bulk Plant Supervisor Required: Yes Bulk Plant Supervisor Language: Tax Professional Services: Bulk Plant Supervisor Present (in person) Bulk Plant Supervisor Name: Chayo NICOLAS Information Interpreted: non-clinical & clinical Sprinkling Truck Driver: Sprinkling Truck Driver Present (Chayo NICOLAS) Accompanied by: Self / Same As Patient Allergies No Known Allergies [No Known Allergies*] Allergy (Verified 03/11/24 07:56) none Allergy (Unknown, Uncoded 03/11/24 07:56) none Is last menstrual period known: Yes Last menstrual period: 03/06/24 HPI Comments Details: The patient is presenting with bilateral lower pelvic pain started 1-2 week ago. It's intermittent in nature lasting few seconds and occurs 3x/day. it is not associated with vaginal discharge, no constipation, no dysuria, frequency incontinence, no n/v, no feverishness, chills. PFSH Medical History Chronic UTI Gassiness GERD (gastroesophageal reflux disease) H. 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 Sexually active: Yes Sexual orientation: Straight/Heterosexual Gender identity: Female Female Reproductive History Menstrual Age of Menarche: 11 Duration of menses: 3-5 days Date of last menstrual period: 03/06/24 control method: permanent sterilization Total pregnancies: 2 Full term: 2 Number of Living Children: 2 Review of Systems Const All systems reviewed & are unremarkable except as noted in HPI and below Physical Exam Vital Signs: Last Vital Signs BP 118/66 03/11/24 07:47 BMI result Body Mass Index 29.6 General: Yes no CVA tenderness External Female Exam: normal external appearance and normal appearance of the urethra Speculum Exam - Vagina: normal appearance of the vagina, normal palpation, no lesions and no masses Speculum Exam - Cervix: normal appearance of the cervix, normal palpation, no lesions, no masses and nontender Bimanual exam- vagina & uterus: normal bimanual exam, normal palpation, uterine size normal, normal palpation, uterine shape normal, No Cervical tenderness present and non-tender Bimanual Exam- Adnexa, other: normal adnexae Back/Spine/Pelvis Back: no CVA tenderness Assessment & Plan Assessment & Plan (1) Pelvic pain: Code(s): R10.2 - Pelvic and perineal pain Category: Medical Plan: Urine dip and test done in the office were both negative. GC and chlamydia taken and pelvic ultrasound ordered. Discussed with the patient the differential diagnosis of pelvic pain including but not limited to adnexal, uterine masses, pelvic infections (PID), GI the (Irritable bowel syndrome, diverticulitis, others), musculoskeletal, myofascial pain abdominal wall , adhesions, endometriosis, psychological and others causes. Will check results and treat accordingly. All questions answered, the patient verbalized understanding. Instructed the patient to schedule follow-up appointment in 2 weeks Orders: Orders AMB HCG Urine Test Today Z32.02 - Encounter for test, result negative US pelvic and transvaginal Today R10.2 - Pelvic and perineal pain AMB Urinalysis Dipstick Today R10.2 - Pelvic and perineal pain Coding Level of Care Code New Pt Level 3 (55365) Diagnoses Pelvic pain R10.2
== END 2024-03-11 08:51 | disposition home or self-care (01) ==
PROVIDERS: PCP Internal Medicine; Visit Provider Obstetrics & Gynecology
DX: R10.2 Pelvic and perineal pain (principal)
CPT/HCPCS: 99203

== ENCOUNTER 2024-03-25 16:17 | Outpatient (REF) | payer MEDICAID, SELFPAY ==
[2024-03-25 17:56] LABS: MANUAL DIFF FLAG NO
[2024-03-25 18:19] LABS: Basophils Absolute Auto 0.1 X10*3/uL (0.0-0.2); Basophils Percent Auto 0.5 % (0-2); Eosinophils Percent Auto 0.3 % (0-4); Hematocrit 32.7 % (37.0-47.0); Hemoglobin 11.2 g/dl (12.0-16.0); Imm Gran Abs Auto 0.07 X10*3/uL (0.00-0.03); Imm Gran Pct Auto 0.7 % (0.0-0.4); Lymphocytes Absolute Auto 3.3 X10*3/uL (1.2-4.9); Lymphocytes Percent Auto 34.8 % (20-40); Mean Corpuscular HGB Conc 34.3 g/dl (31.0-35.0); Mean Corpuscular Hemoglobin 31.2 pg (27.0-33.0); Mean Corpuscular Volume 91.1 fL (80.0-98.0); Mean Platelet Volume 10.3 fL (9.4-12.3); Monocytes Absolute Auto 0.8 X10*3/uL (0.1-1.2); Monocytes Percent Auto 8.3 % (2-11); Neutrophils Absolute Auto 5.2 x10*3/uL (2.0-8.3); Neutrophils Percent Auto 55.4 % (45-73); Platelet Count 355 X10*3/uL (160-400); Red Blood Count 3.59 X10*6/uL (4.20-5.50); Red Cell Distribution Width 12.4 % (11.0-16.0); White Blood Count 9.4 X10*3/uL (4.8-10.8)
[2024-03-25 18:25] LABS: C Reactive Protein 0.36 mg/dL (< or = 0.50)
[2024-03-25 18:45] LABS: Monotest Negative (Negative)
== END 2024-03-25 16:18 | disposition home or self-care (01) ==
LOC: HO.CHCLDS 16:17
PROVIDERS: Visit Provider Family Medicine
DX: J02.9 Acute pharyngitis, unspecified (principal)
CPT/HCPCS: 36415; 85025; 86140; 86308; 87070

== ENCOUNTER 2024-03-26 14:43 | Outpatient (REF) | payer MEDICAID, SELFPAY ==
--- NOTE | ~2024-03-26 | US_ITS ---
EXAMINATION: US PELVIS CLINICAL INFORMATION: Pelvic and perineal pain. COMPARISON: CT abdomen and pelvis 06/22/2020 TECHNIQUE: Ultrasound of the pelvis is performed using both transabdominal and transvaginal transducers along with Doppler. Transvaginal imaging is performed due to inadequate visualization transabdominally. FINDINGS: Uterus: The uterus is anteverted and measures 10.7 x 5.0 x 5.4 cm. The double wall endometrium is abnormal measuring 13 mm in thickness. The endometrium appears heterogeneous with some cystic areas. The uterus is smooth in contour and has normal myometrial echogenicity. No visible fibroid. Adnexa: Both ovaries are visualized. There is normal color flow to the adnexa. There is no ovarian torsion. There is a small amount of free fluid in the pelvis similar to the prior CT. Right ovary measures 2.5 x 1.2 x 2.5 cm. Left ovary measures 2.5 x 1.2 x 2.1 cm. US/US pelvic and transvaginal IMPRESSION: Abnormal endometrium which appears heterogeneous and with cystic areas. A repeat transabdominal and endovaginal ultrasound recommended in 2-3 months for further assessment. Electronically signed by: Nehemias Sanchez MD 03/30/2024 09:55 PM EDT RP
== END 2024-03-26 14:44 | disposition home or self-care (01) ==
LOC: HO.US 14:43
PROVIDERS: PCP Internal Medicine; Visit Provider Obstetrics & Gynecology
DX: R10.2 Pelvic and perineal pain (principal)
CPT/HCPCS: 76830; 76856

== ENCOUNTER 2024-04-01 07:53 | Outpatient (REF) | payer MEDICAID, SELFPAY ==
[2024-04-01 10:12] LABS: HCG Quantitative < 2 mIU/mL; TSH reflex Free T4 1.59 uIU/mL (0.32-4.0)
[2024-04-02 18:04] LABS: Prolactin 9.2 ng/mL
== END 2024-04-01 07:54 | disposition home or self-care (01) ==
LOC: HO.LAB 07:53
PROVIDERS: PCP Internal Medicine; Visit Provider Obstetrics & Gynecology
DX: N93.9 Abnormal uterine and vaginal bleeding, unspecified (principal)
CPT/HCPCS: 36415; 84146; 84443; 84702; 99212

== ENCOUNTER 2024-04-01 07:53 | Outpatient (AMB) | payer MEDICAID, SELFPAY ==
--- NOTE | 2024-04-01 07:55 | MHC.OFFVIS ---
Vital Signs 04/01/24 08:02 Height 5 ft 1 in Weight 156 lb 8.451 oz BMI 29.6 BP 110/68 Intake Visit Reasons: pre op Battery Plate Assembler Required: Yes Battery Plate Assembler Language: Travel Attendants Services: Battery Plate Assembler Present (in person) Battery Plate Assembler Name: Chayo NICOLAS Information Interpreted: non-clinical & clinical Civil Celebrant: Civil Celebrant Present Accompanied by: Self / Same As Patient Allergies No Known Allergies [No Known Allergies*] Allergy (Verified 04/01/24 08:03) none Allergy (Unknown, Uncoded 04/01/24 08:03) none Is last menstrual period known: Yes Last menstrual period: 03/03/24 Post menopausal: No Patient : No Do you need a note to return to daycare/school/sports/work: Yes (for surgery on saturday) HPI Comments Details: Presenting for pelvic pain follow-up. Doing well. The following workup was done: Urine dip and test done in the office last visit post were negative GC/CT were negative Pelvic ultrasound done on 03/30/2024 showed the following: Uterus: The uterus is anteverted and measures 10.7 x 5.0 x 5.4 cm. The double wall endometrium is abnormal measuring 13 mm in thickness. The endometrium appears heterogeneous with some cystic areas. The uterus is smooth in contour and has normal myometrial echogenicity. No visible fibroid. Adnexa: Both ovaries are visualized. There is normal color flow to the adnexa. There is no ovarian torsion. There is a small amount of free fluid in the pelvis similar to the prior CT. Right ovary measures 2.5 x 1.2 x 2.5 cm. Left ovary measures 2.5 x 1.2 x 2.1 cm. [facility] Medical History Chronic UTI Gassiness GERD (gastroesophageal reflux disease) H. 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 Sexual orientation: Straight/Heterosexual Gender identity: Female Female Reproductive History Menstrual Age of Menarche: 11 Date of last menstrual period: 03/03/24 control method: permanent sterilization Total pregnancies: 2 Full term: 2 Review of Systems Const All systems reviewed & are unremarkable except as noted in HPI and below Reports as per HPI and Reports no additional complaints Card Reports as per HPI and Reports no additional complaints Resp Reports as per HPI and Reports no additional complaints GI Reports no additional complaints Reports no additional complaints Physical Exam Vital Signs: Last Vital Signs BP 110/68 04/01/24 08:02 BMI result Body Mass Index 29.6 Assessment & Plan Assessment & Plan (1) Pelvic pain: Code(s): R10.2 - Pelvic and perineal pain Category: Medical Plan: Discussed with the patient the results of the workup done so far GC/CT negative, urine dip and urine test negative. Ultrasound showing abnormal endometrium, all questions answered, the patient verbalized understanding (2) Abnormal ultrasound of endometrium: Comment: Heterogenous with cystic areas Code(s): R93.5 - Abnormal findings on diagnostic imaging of other abdominal regions, including retroperitoneum Category: Medical Plan: Discussed with the patient the finding on ultrasound showing abnormal endometrium, heterogenous with cystic areas. Recommended to the patient that the next step is an endometrial sampling via hysteroscopy D&C possible polypectomy versus endometrial biopsy to r/o endometrial pathology including hyperplasia or cancer. All the pros and cons risks and benefits of each approach were discussed with the patient, endometrial biopsy being less invasive, office procedure with less sensitivity and inability diagnose a polyp and removal versus hysteroscopy done under anesthesia more invasive more sensitive to endometrial cancer and possibility of diagnosing and endometrial polyp with the possibility of polypectomy. All questions were answered pt verbalized understanding and decided to proceed with emb . Instructions given the patient to schedule an appointment for EMB within 2 weeks (3) Abnormal uterine bleeding (AUB): Comment: anemia Code(s): N93.9 - Abnormal uterine and vaginal bleeding, unspecified Category: Medical Plan: TSH, prolactin, HCG, and pelvic ultrasound ordered. Discussed with the patient the different causes of abnormal bleeding including thyroid disorders, uterine and ovarian pathology, endometrial hyperplasia, carcinoma and other potential causes. Discussed with the patient the work up including CBC (to r/o anemia), TSH, prolactin, pelvic Ultrasound, endometrial biopsy to r/o endometrial pathology. All questions answered and the patient verbalized understanding. Instructed the patient to schedule an appointment for an endometrial biopsy in 2 weeks. (4) ASCUS with positive high risk HPV cervical: Code(s): R87.610 - Atypical squamous cells of undetermined significance on cytologic smear of cervix (ASC-US); R87.810 - Cervical high risk human papillomavirus (HPV) DNA test positive Category: Medical Plan: Discussed with the patient the result of her abnormal pap, ascus/HPV E6/E7 positive, its significance, risk of progression, persistence, and regression. the false positive/negative rate of a Pap smear as a screening test in detecting cervical cancer and the indication for a diagnostic test -colposcopy, biopsy, endocervical curettage. Instructions given the patient to schedule colposcopy/biopsy/ECC appointment within 1-2 weeks. The patient verbalized understanding and agreed with the plan, all questions answered. Orders: Orders TSH reflex Free T4 Today N93.9 - Abnormal uterine and vaginal bleeding, unspecified Prolactin Today N93.9 - Abnormal uterine and vaginal bleeding, unspecified HCG Quantitative Today N93.9 - Abnormal uterine and vaginal bleeding, unspecified Coding Level of Care Code Est Pt Level 3 (47086) Diagnoses Pelvic pain R10.2 Abnormal ultrasound of endometrium R93.5 Abnormal uterine bleeding (AUB) N93.9 ASCUS with positive high risk HPV cervical R87.610; R87.810
[2024-04-01 08:02] VITALS: BP 110/68; BMI 29.6
== END 2024-04-01 08:56 | disposition home or self-care (01) ==
LOC: HO.HWS 07:53
PROVIDERS: PCP Internal Medicine; Visit Provider Obstetrics & Gynecology
DX: R10.2 Pelvic and perineal pain (principal); R93.5 Abnormal findings on diagnostic imaging of other abdominal regions, including retroperitoneum; N93.9 Abnormal uterine and vaginal bleeding, unspecified; R87.610 Atypical squamous cells of undetermined significance on cytologic smear of cervix (ASC-US); R87.810 Cervical high risk human papillomavirus (HPV) DNA test positive
CPT/HCPCS: 99213

== ENCOUNTER 2024-04-29 11:55 | Outpatient (AMB) | payer MEDICAID, SELFPAY ==
[2024-04-29 12:25] VITALS: BMI 29.6
--- NOTE | 2024-04-29 12:25 | MHC.OFFVIS ---
Vital Signs 04/29/24 12:25 Height 5 ft 1 in Weight 156 lb 8.451 oz BMI 29.6 Intake Visit Reasons: Colposcopy/ EMB Forest Firefighter Required: Yes Forest Firefighter Language: Starch Mangle Tender Services: Forest Firefighter Present (in person) Information Interpreted: non-clinical & clinical Enterprise Mobility Architect: Enterprise Mobility Architect Present (Chayo Kumar MARIA ISABEL) Accompanied by: Self / Same As Patient Allergies No Known Allergies [No Known Allergies*] Allergy (Verified 04/29/24 12:26) none Allergy (Unknown, Uncoded 04/29/24 12:26) none HPI Comments Details: Presenting for EMB and colposcopy. Last Pap smear was ascus/HPV positive, ultrasound showed 13 mm endometrial stripe endometrium with cystic areas. The patient was offered different options of treatment including hysteroscopy D&C possible polypectomy/myomectomy versus EMB all pros and cons, risks and benefits of each were discussed with the patient, the patient decided to proceed with EMB and colposcopy/biopsy/ECC PFSH Medical History Chronic UTI Gassiness GERD (gastroesophageal reflux disease) H. 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 We thoroughly discussed the procedure itself, including its details, alternatives, and all associated risks. This included but not limited to the following complications such as bleeding, infection, and injury to the vagina, bladder, and vessels, as well as the potential need for transfusion with all its associated risks. Subsequently, the patient sign the consent. Urine test done in the office was negative Pap smear result: Ascus/HPV positive Procedure: During the procedure, the following steps were performed: A speculum was inserted, and acetic acid was applied. Colposcopy was conducted, allowing visualization of the transformation zone. Acetowhite lesions were identified at the 11+12 o'clock position. Cervical biopsies were obtained from the 11 o'clock position, followed by an endocervical curettage (ECC). Vaginoscopy of the upper vagina revealed no evidence of aceto-white lesions. Hemostasis was achieved using Monsel solution, and the patient tolerated the procedure well. Post-Procedure Instructions: The patient was advised to promptly contact the office or the after hours answering service or go to the emergency room if experiencing a temperature exceeding 100.4?F, abdominal pain, nausea/vomiting, or bleeding. Additionally, the patient was instructed to abstain from vaginal intercourse and bathtub use. The patient confirmed understanding of these instructions. Discharge Instructions: The patient was instructed to schedule a follow-up appointment in 2 weeks for further evaluation and management. Please note that this note was generated using a voice recognition program, and errors may have occurred during personalized living assistant. 78438-Lkqwpypou of cervix including upper vagina with biopsy and ECC Procedure code (CPT) selection complete Endometrial Biopsy Details: The patient was counseled regarding the indication and benefits of endometrial sampling to rule out endometrial pathology including not limited to endometrial hyperplasia or endometrial cancer and others; The alternatives (Either do nothing vs. hysteroscopy D&C) & the risks were discussed with the patient including but not limited: pain, uterine perforation, bleeding, infection, possible injury to bladder, bowel, ureter, possible need for blood transfusion with all its possible risks. The patient verbalized understanding all questions answered and signed consent. Urine test done in the office was negative The patient was placed into the dorsal lithotomy position; a speculum was inserted in the vagina. Using aseptic technique for the procedure, the cervix was cleansed with Betadine. The anterior lip of the cervix was grasped with a single tooth tenaculum. The uterus was sounded to 7 cm with a 4 mm Pipelle was used. Tissues samples were obtained and placed in formalin, in a patient labeled container and sent to the pathology department. At the end of the procedure, there was minimal bleeding noted The patient tolerated the procedure well and was discharged in good condition with the following instructions: Nothing in the vagina until the bleeding stops. No sex until the bleeding stops, to call if any of the following occurs: fever (>100.4), flu-like symptoms, abdominal pain, heavy bleeding, four smelling vaginal discharge. The patient was instructed to schedule a Follow up appointment in 2 weeks to discuss pathology results of the biopsy and treatment options. This note was generated with a voice recognition program. Some errors may have been overlooked during the review of this note. Sometimes these errors may affect the content or meaning of a given sentence. 79214-Jzorrmgwifs Biopsy Assessment & Plan Assessment & Plan (1) Abnormal ultrasound of endometrium: Comment: Heterogenous with cystic areas Code(s): R93.5 - Abnormal findings on diagnostic imaging of other abdominal regions, including retroperitoneum Category: Medical Plan: EMB done, see procedure note (2) ASCUS with positive high risk HPV cervical: Code(s): R87.610 - Atypical squamous cells of undetermined significance on cytologic smear of cervix (ASC-US); R87.810 - Cervical high risk human papillomavirus (HPV) DNA test positive Category: Medical Plan: Discussed with the patient the result of her abnormal pap, its significance, risk of progression, persistence, and regression. the false positive/negative rate of a Pap smear as a screening test in detecting cervical cancer and the indication for a diagnostic test -colposcopy, biopsy, endocervical curettage. The patient verbalized understanding and agreed with the plan, all questions answered. Colpo biopsy/ECC done, see procedure note Orders: Orders AMB Colposcopy Today R87.610 - Atypical squamous cells of undetermined significance on cytologic smear of cervix (ASC-US), R87.810 - Cervical high risk human papillomavirus (HPV) DNA test positive AMB Endometrial Biopsy Today R93.5 - Abnormal findings on diagnostic imaging of other abdominal regions, including retroperitoneum Coding Level of Care Code Procedure Only Diagnoses Abnormal ultrasound of endometrium R93.5 ASCUS with positive high risk HPV cervical R87.610; R87.810 CPT Codes Colposcopy - CPT: 08175-Sanzggkyc of cervix including upper vagina with biopsy and ECC ([id number]) Endometrial Biopsy - CPT: 73455-Owssqwgbiqd Biopsy ([id number])
== END 2024-04-29 12:41 | disposition home or self-care (01) ==
PROVIDERS: PCP Internal Medicine; Visit Provider Obstetrics & Gynecology
DX: R93.5 Abnormal findings on diagnostic imaging of other abdominal regions, including retroperitoneum (principal); R87.610 Atypical squamous cells of undetermined significance on cytologic smear of cervix (ASC-US); R87.810 Cervical high risk human papillomavirus (HPV) DNA test positive
CPT/HCPCS: 57454; 58110

== ENCOUNTER 2024-04-29 11:55 | Outpatient (REF) | payer MEDICAID, SELFPAY | END 2024-04-29 11:56 | disposition home or self-care (01) | LOC: HO.LNP 11:55 | PROVIDERS: PCP Internal Medicine; Visit Provider Obstetrics & Gynecology | DX: N87.0 Mild cervical dysplasia (principal); R87.610 Atypical squamous cells of undetermined significance on cytologic smear of cervix (ASC-US); R87.810 Cervical high risk human papillomavirus (HPV) DNA test positive; N93.9 Abnormal uterine and vaginal bleeding, unspecified; R93.5 Abnormal findings on diagnostic imaging of other abdominal regions, including retroperitoneum | CPT/HCPCS: 57454; 58110; 88305 ==

== ENCOUNTER 2024-05-04 12:32 | Outpatient (AMB) | payer MEDICAID, SELFPAY ==
--- NOTE | 2024-05-04 12:33 | A.OFFVIS_ITS ---
Intake Visit Reasons: colpo/emb results Housekeeper Head Required: Yes Housekeeper Head Language: Civil Cadd Technician Services: Housekeeper Head Present (in person) Housekeeper Head Name: Chayo NICOLAS Information Interpreted: non-clinical & clinical Allergies No Known Allergies [No Known Allergies*] Allergy (Verified 05/04/24 12:34) none Allergy (Unknown, Uncoded 05/04/24 12:34) none HPI Comments Details: The patient is presenting for follow-up to discuss the results of her abnormal uterine bleeding workup and options of treatment. The following workup was done.: H&H= 11.2/32.7 TSH, hCG, GC and chlamydia were negative. Co testing was done was ascus/HPV negative Colpo biopsy ECC/EMB showed the following: A. Endometrium, biopsy: Benign late secretory endometrium with scattered inactive/poorly-developed glands and focal stromal collapse; no atypia or carcinoma. B. Endocervix, curettage: Endocervical glandular mucosa; negative for dysplasia. C. Cervix, 11:00, biopsy: Low-grade squamous intraepithelial lesion (mild dysplasia, SARAH 1), and endocervical glandular mucosa with inflammation. D. Cervix, 12:00, biopsy: Squamous mucosa with reactive changes; negative for dysplasia; no endocervical glandular component present. Comment: (A): Some fragments may be derived from benign functional polyps Mammogram was BI-RADS 1 Pelvic ultrasound showed the following: Uterus: The uterus is anteverted and measures 10.7 x 5.0 x 5.4 cm. The double wall endometrium is abnormal measuring 13 mm in thickness. The endometrium appears heterogeneous with some cystic areas. The uterus is smooth in contour and has normal myometrial echogenicity. No visible fibroid. Adnexa: Both ovaries are visualized. There is normal color flow to the adnexa. There is no ovarian torsion. There is a small amount of free fluid in the pelvis similar to the prior CT. Right ovary measures 2.5 x 1.2 x 2.5 cm. Left ovary measures 2.5 x 1.2 x 2.1 cm. [facility] Medical History Chronic UTI Gassiness GERD (gastroesophageal reflux disease) H. 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 Sexual orientation: Straight/Heterosexual Gender identity: Female Female Reproductive History Menstrual Age of Menarche: 11 Telehealth Telehealth Telehealth Platform: Telephone Location of provider rendering services: practice address Location of patient: address on file Patient Identification confirmed using: Name, : Yes Telehealth method: video Patient verbally consented to treatment: Yes Patient verbally consented to billing insurance company: Yes Patient informed of any privacy concerns related to visit: Yes Assessment & Plan Assessment & Plan (1) Abnormal uterine bleeding (AUB): Comment: anemia Abnormal endometrium Endometrial polyp on EMB pathology Code(s): N93.9 - Abnormal uterine and vaginal bleeding, unspecified Category: Medical Plan: Discussed with the patient the results of the endometrial biopsy showing possible fragments of functional polyp, recommended hysteroscopy D&C possible polypectomy/myomectomy given the abnormal appearance of the endometrium cystic areas on ultrasound. Instructions given the patient to schedule a preop visit within 2 weeks. All questions answered, the patient verbalized understanding (2) SARAH I (cervical intraepithelial neoplasia I): Code(s): N87.0 - Mild cervical dysplasia Category: Medical Plan: Discussed with the patient the pathology results of the colposcopy biopsies & endocervical curettage ( mild dysplasia-SARAH 1). Discussed with the patient the sensitivity specificity, positive and negative predictive value in detecting cervical cancer in addition discussed the regression, persistence and progression rates. Recommended co-testing in 12 months, if cytology and or HPV are abnormal will proceed was colposcopy biopsy and endocervical curettage, if lesions gets worse or stays persistent for 2 years will proceed with loop electric excision procedure. Instructions given to the patient to schedule a co test appointment in 1 year. All questions answered the patient verbalized understanding. I spent a total of 20 minutes reviewing the chart, talking to the patient via video and documenting in the medical record. Coding Level of Care Code Tele Est Pt Level 1 (60421) Diagnoses Abnormal uterine bleeding (AUB) N93.9 SARAH I (cervical intraepithelial neoplasia I) N87.0
== END 2024-05-04 13:20 | disposition home or self-care (01) ==
LOC: HO.HWS 12:32
PROVIDERS: PCP Internal Medicine; Visit Provider Obstetrics & Gynecology
DX: N93.9 Abnormal uterine and vaginal bleeding, unspecified (principal); N87.0 Mild cervical dysplasia
CPT/HCPCS: 99211

== ENCOUNTER → 2024-05-04 12:32 | Outpatient (BNVA) | payer MEDICAID, SELFPAY | PROVIDERS: PCP Internal Medicine; Visit Provider Obstetrics & Gynecology ==

== ENCOUNTER 2024-05-07 15:27 | Outpatient (AMB) | payer MEDICAID, SELFPAY ==
[2024-05-07 15:31] VITALS: BMI 29.6
--- NOTE | 2024-05-07 15:31 | A.OFFVIS_ITS ---
Vital Signs 05/07/24 15:31 Height 5 ft 1 in Weight 156 lb 8.451 oz BMI 29.6 Intake Visit Reasons: pre op Oven Drier Tender Required: Yes Oven Drier Tender Language: Holter Scanning Technician Services: Oven Drier Tender Present (in person) Oven Drier Tender Name: Chayo NICOLAS Information Interpreted: non-clinical & clinical Life Insurance Salesperson: Life Insurance Salesperson Present Accompanied by: Self / Same As Patient Allergies No Known Allergies [No Known Allergies*] Allergy (Verified 05/07/24 15:31) none Allergy (Unknown, Uncoded 05/07/24 15:31) none Is last menstrual period known: Yes Last menstrual period: 05/26/20 Post menopausal: No Patient : No Do you need a note to return to daycare/school/sports/work: Yes (for surgery on saturday) HPI Comments Details: Presenting to discuss discuss hysteroscopy D&C possible polypectomy/myomectomy. Pelvic ultrasound done in 03/21 showed the following: Uterus: The uterus is anteverted and measures 10.7 x 5.0 x 5.4 cm. The double wall endometrium is abnormal measuring 13 mm in thickness. The endometrium appears heterogeneous with some cystic areas. The uterus is smooth in contour and has normal myometrial echogenicity. No visible fibroid. Adnexa: Both ovaries are visualized. There is normal color flow to the adnexa. There is no ovarian torsion. There is a small amount of free fluid in the pelvis similar to the prior CT. Right ovary measures 2.5 x 1.2 x 2.5 cm. Left ovary measures 2.5 x 1.2 x 2.1 cm. EMB pathology showed some fragments may be derived from benign functional polyps PFSH Medical History Chronic UTI Gassiness GERD (gastroesophageal reflux disease) H. 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 Sexual orientation: Straight/Heterosexual Gender identity: Female Female Reproductive History Menstrual Age of Menarche: 11 Date of last menstrual period: 05/26/20 Total pregnancies: 2 Full term: 2 Review of Systems Card Reports as per HPI and Reports no additional complaints Resp Reports as per HPI and Reports no additional complaints GI Reports as per HPI and Reports no additional complaints Reports as per HPI Physical Exam Vital Signs: BMI result Body Mass Index 29.6 Const General: cooperative, healthy appearing and comfortable Resp Effort & Inspection: normal respiratory effort Auscultation: clear to auscultation bilaterally Percussion: percussion normal Cardio Palpation: normal PMI Rate: regular rate Rhythm: regular rhythm Heart sounds: no murmurs and no rubs Peripheral pulses: Peripheral pulses 2+ throughout GI Inspection: Yes normal to inspection Palpation (GI): Soft to palpation, nontender, no guarding, not rigid and No hepatosplenomegaly present Percussion: Yes normal to percussion Auscultation: normal bowel sounds Rectal Exam - Female: deferred Assessment & Plan Assessment & Plan (1) Abnormal ultrasound of endometrium: Comment: Heterogenous with cystic areas Endometrial polyp on EMB pathology Code(s): R93.5 - Abnormal findings on diagnostic imaging of other abdominal regions, including retroperitoneum Category: Medical Plan: Recommended hysteroscopy D&C possible polypectomy/myomectomy. Discussed with the patient the procedure , all benefits and risks including but not limited to inability to complete the procedure , insufficient endometrial tissue for a complete evaluation of the endometrial cavity , bleeding, infection, possible need for blood transfusion with all its risk ( HIV,syphilis, Hepatitis, anaphylaxis shock, others..), injury to bladder, rectum, possible need for laparoscopy/laparotomy or hysterectomy. The patient verbalized understanding and signed the consent. Instructions given the patient to stay NPO after midnight the day prior to the procedure and to take only the specific medication (s) discussed the morning of the surgical procedure and to schedule a 2 week postoperative appointment Coding Level of Care Code Est Pt Level 3 (12947) Diagnoses Abnormal ultrasound of endometrium R93.5
== END 2024-05-07 15:45 | disposition home or self-care (01) ==
LOC: HO.HWS 15:27
PROVIDERS: PCP Internal Medicine; Referring Provider Internal Medicine; Visit Provider Obstetrics & Gynecology
DX: R93.5 Abnormal findings on diagnostic imaging of other abdominal regions, including retroperitoneum (principal)
CPT/HCPCS: 99213

== ENCOUNTER → 2024-05-07 15:27 | Outpatient (BNVA) | payer MEDICAID, SELFPAY | PROVIDERS: PCP Internal Medicine; Visit Provider Obstetrics & Gynecology | DX: R93.5 Abnormal findings on diagnostic imaging of other abdominal regions, including retroperitoneum (principal); Z98.51 Tubal ligation status | CPT/HCPCS: 99212 ==

== ENCOUNTER 2024-06-05 10:43 | Day surgery (SDC) | payer MEDICAID, SELFPAY ==
--- NOTE | 2024-06-04 11:49 | HO.ANESPROP2 ---
Documented by User: Uma Reyes NP 06/04/24 11:50 HPI - Anesthesia Eval Consult details Narrative: 39yo F for D&C Hysteroscopy,possible myomectomy,possible polypectomy, PMFSH Active Problems Active Problems: All Active Problems SARAH I (cervical intraepithelial neoplasia I) (Acute) ASCUS with positive high risk HPV cervical (Acute) Abnormal uterine bleeding (AUB) (Acute) Abnormal ultrasound of endometrium (Acute) Pelvic pain (Acute) Daytime sleepiness (Acute) Snoring (Acute) Screen for sexually transmitted diseases (Acute) Problematic vaginal discharge (Acute) Cervical cancer screening (Acute) Breast cancer screening (Acute) Well woman exam with routine gynecological exam (Acute) Chronic UTI (Acute) Past Medical History Medical History Chronic UTI Gassiness GERD (gastroesophageal reflux disease) H. pylori infection Constipation Nausea Postprandial epigastric pain Tubal ligation evaluation Family History Family History Other Family history non-contributory Surgical History Surgical History Hx of tubal ligation History of surgery Social History Social History Household Members: Family Housing: Apartment Are you a primary primary care sales representative to a significant other at home: No Do you presently have visiting nurse or other home services: No Alcohol intake: current Alcohol intake frequency: a few times a week Patient Tobacco Use Status: Former Tobacco user Current occupational status: employed 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 Sexual orientation: Straight/Heterosexual Gender identity: Female Meds Allergies Allergy/AdvReac Type Severity Reaction Status Date / Time No Known Allergies Allergy Verified 06/05/24 11:25 [No Known Allergies*] none Allergy Unknown none Uncoded 05/07/24 15:31 Home Medications ?Medication ?Instructions ?Recorded ?Confirmed ?Last Taken ?Type ibuprofen 400 mg tablet 400 mg PO Q6H PRN pain 11/22/23 06/05/24 05/27/24 History Assessment and Plan Assessment Anesthesia Assessment: Chart Reviewed Documented by User: Richard Harris MD 06/05/24 12:43 PMFSH Past Medical History Medical History Chronic UTI Gassiness GERD (gastroesophageal reflux disease) H. pylori infection Constipation Nausea Postprandial epigastric pain Tubal ligation evaluation Patient : No Family History Family History Other Family history non-contributory Family history of problems with anesthesia: No Surgical History Surgical History Hx of tubal ligation History of surgery History of Problems with Anesthesia: No Social History Social History Household Members: Family Housing: Apartment Are you a primary primary care sales representative to a significant other at home: No Do you presently have visiting nurse or other home services: No Alcohol intake: current Alcohol intake frequency: a few times a week Patient Tobacco Use Status: Former Tobacco user Current occupational status: employed 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 Sexual orientation: Straight/Heterosexual Gender identity: Female Meds Allergies Allergy/AdvReac Type Severity Reaction Status Date / Time No Known Allergies Allergy Verified 06/05/24 11:25 [No Known Allergies*] none Allergy Unknown none Uncoded 05/07/24 15:31 Home Medications ?Medication ?Instructions ?Recorded ?Confirmed ?Last Taken ?Type ibuprofen 400 mg tablet 400 mg PO Q6H PRN pain 11/22/23 06/05/24 05/27/24 History Exam Airway Mallampati Class: II TM Dist: >3cm Neck ROM: Full Loose/Missing/Broken Teeth: No Heart: ok Lungs: ok Assessment and Plan Assessment Anesthesia Assessment: Anesthesia Plan Discussed Final Anesthetic Review Family History of Problems with Anesthesia: No History of Problems with Anesthesia: No NPO: Yes ASA Class: II Final Preanesthetic Review: No Changes in Pt Med Stat, Meds/Allgs Chart Reviewed, Consent Obtained/Reviewed, Anes Risks/Benef Reviewed and DNR Form (If Appl.) Patient Risk: Low Procedure Risk: Low Anesthetic Plan Anesthetic Plan: GA and Agree w/ Assess. and Plan Disposition: Standard PACU
[2024-06-05 11:17] VITALS: BP 129/77; PULSE 71; RESP 14; TEMP 36.4; O2SAT 98; BMI 29.5
[2024-06-05 11:28] LABS: UPreg QC Valid YES
[2024-06-05 11:30] LABS: Urine Pregnancy NEGATIVE (NEGATIVE)
[2024-06-05] MEDS: Lactated Ringers 1,000 ML 100 ML IVCONT (11:37)
--- NOTE | 2024-06-05 12:44 | MHC.SHP ---
Pre-Procedural Eval Section A - 24 Hr Update-Section A only Date of Service: 06/05/24 The patient is an INPATIENT: No Changes since office visit: No Cold of Flu in the past 2 weeks, No New Medical Problems, No Changes in Medication and No Patient answered all questions The patient has been examined within 24 hours of the surgical procedure. The History & Physical has been completed within 30 days and I have reviewed it.: Yes Section B - Complete if H&P > 30 days Chief Complaint: Abnormal findings on diagnostic imaging Allergies: Allergies Allergy/AdvReac Type Severity Reaction Status Date / Time No Known Allergies Allergy Verified 06/05/24 11:25 [No Known Allergies*] none Allergy Unknown none Uncoded 05/07/24 15:31 Plan Diagnosis/Plan: Unchanged I have reviewed the history and physical and performed a pertinent physical examination on my patient. No changes have occurred unless specified. Time Spent With Patient Time: Total time managing care of this patient today ____ minutes.
--- NOTE | 2024-06-05 13:10 | PM.OP ---
Brief Operative Note Date of Service: 06/05/24 Pre-op diagnosis: Abnormal uterine bleeding and abnormal endometrium by ultrasound Post-op diagnosis: same (Normal endometrial cavity) Procedure: Hysteroscopy D&C Surgeon: Jose Raul Acevedo MD Anesthesia: GLMA Was an Community Outreach Manager used for this Procedure?: No Estimated blood loss (mL): 0 Pathology: other (Endometrial Scrapping.) Condition: stable Disposition: PACU
--- NOTE | 2024-06-05 13:10 | W.PM.OPN ---
Operative Note Operative Note Date of Service: 06/05/24 Narrative: Preop Diagnosis: Abnormal uterine bleeding and abnormal endometrium by ultrasound Operation: Diagnostic Hysteroscopy, Dilataion & Curettage Post Op Diagnosis: Normal endometrial and endocervical cavity, no evidence of pathology QBL: Minimal Anesthesia: GLMA Surgeon: Jose Raul Acevedo MD Standard Machine Stitcher: None Complication: None Pathology: Endometrial Scrapings Procedure: The patient was put in the dorsal lithotomy position, scrubbed, and draped in the usual manner. A sterile speculum was inserted in the patient's vagina. The anterior lip of the cervix was grasped with a single tooth tenaculum. The cervix was dilated up to 5 mm, then the scope was inserted in the patient's uterus. Inspection revealed normal endocervical & endometrial cavity with no evidence of pathology. The scope was taken out of the uterine cavity , then sharp curetting was carried on with no complications. At the end of the procedure, all instruments were taken out of the patient uterine and vaginal cavity. The single tooth tenaculum was removed and homeostasis was assured using pressure. The patient tolerated the procedure well and was transferred to the PACU in a stable condition.
[2024-06-05 13:16] VITALS: BP 136/75; PULSE 78; RESP 22; TEMP 36.3; O2SAT 98
[2024-06-05 13:21] VITALS: BP 123/70; PULSE 70; RESP 22; O2SAT 98
[2024-06-05 13:26] VITALS: BP 110/66; PULSE 64; RESP 20; O2SAT 100
[2024-06-05 13:31] VITALS: BP 112/67; PULSE 69; RESP 20; O2SAT 100
[2024-06-05 13:46] VITALS: BP 116/70; PULSE 58; RESP 20; TEMP 36.4; O2SAT 100
--- NOTE | 2024-06-05 14:17 | PC.NURSE ---
Harika from table machine operator services present for all discharge paperwork.
== END 2024-06-05 14:26 | disposition home or self-care (01) ==
PROVIDERS: PCP Internal Medicine; Visit Provider Obstetrics & Gynecology
PROC: 0UDB8ZZ Extraction of Endometrium, Via Natural or Artificial Opening Endoscopic (ICD-10-PCS; CPT 58558; principal; 2024-06-05 12:30)
DX: N93.9 Abnormal uterine and vaginal bleeding, unspecified (principal); N85.01 Benign endometrial hyperplasia; N39.0 Urinary tract infection, site not specified; K59.00 Constipation, unspecified; R10.13 Epigastric pain; R11.0 Nausea; Z98.51 Tubal ligation status; Z98.890 Other specified postprocedural states; Z87.891 Personal history of nicotine dependence
CPT/HCPCS: 58558; 81025; 88305; J1885; J2003; J2405; J2704; J3010

== ENCOUNTER → 2024-06-05 10:43 | Outpatient (BNV) | payer MEDICAID, SELFPAY | PROVIDERS: PCP Internal Medicine; Visit Provider Obstetrics & Gynecology | DX: R93.5 Abnormal findings on diagnostic imaging of other abdominal regions, including retroperitoneum (principal) | CPT/HCPCS: 58558 ==

== ENCOUNTER 2024-06-09 11:37 | Outpatient (REF) | payer MEDICAID, SELFPAY ==
[2024-06-09 18:06] LABS: Bacterial Vaginosis PCR NEGATIVE (Negative); Candida Group PCR NOT DETECTED (Not Detect); Candida glab krusei PCR NOT DETECTED (Not Detect); Trichomonas vaginalis PCR NOT DETECTED (Not Detect)
[2024-06-09 18:39] LABS: CT PCR NOT DETECTED (Not Detect.); NG PCR NOT DETECTED (Not Detect.)
== END 2024-06-09 11:38 | disposition home or self-care (01) ==
LOC: HO.LNP 11:37
PROVIDERS: PCP Internal Medicine; Visit Provider Obstetrics & Gynecology
DX: R10.2 Pelvic and perineal pain (principal); N71.9 Inflammatory disease of uterus, unspecified
CPT/HCPCS: 0352U; 81002; 81025; 87491; 87591; 96372; 99212; J0696

== ENCOUNTER 2024-06-09 11:37 | Outpatient (AMB) | payer MEDICAID, SELFPAY ==
--- NOTE | 2024-06-09 11:43 | A.OFFVIS_ITS ---
Vital Signs 06/09/24 11:54 Height 5 ft 1 in Weight 156 lb BMI 29.5 Temp 97.6 F Intake Visit Reasons: Pelvic pain Bandage Wrapping Machine Operator Required: Yes Bandage Wrapping Machine Operator Language: Appraisal Analyst Services: Bandage Wrapping Machine Operator Present (in person) Bandage Wrapping Machine Operator Name: Chayo NICOLAS Information Interpreted: non-clinical & clinical Sight Effects Specialist: Sight Effects Specialist Present (Chayo NICOLAS) Accompanied by: Self / Same As Patient Allergies No Known Allergies [No Known Allergies*] Allergy (Verified 06/09/24 11:55) none Allergy (Unknown, Uncoded 06/09/24 11:55) none Is last menstrual period known: Yes Last menstrual period: 05/20/24 HPI Comments Details: Presenting postop day 4 from hysteroscopy D&C complaining of pelvic pain with no associated urinary or GI symptoms no vaginal bleeding or discharge., no fever or chills PFSH Medical History Chronic UTI Gassiness GERD (gastroesophageal reflux disease) H. 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 Sexual orientation: Straight/Heterosexual Gender identity: Female Female Reproductive History Menstrual Age of Menarche: 11 Date of last menstrual period: 05/20/24 Review of Systems Const All systems reviewed & are unremarkable except as noted in HPI and below Physical Exam Vital Signs: Last Vital Signs Temp 97.6 F 06/09/24 11:54 BMI result Body Mass Index 29.5 General: Yes no CVA tenderness External Female Exam: normal external appearance and normal appearance of the urethra Speculum Exam - Vagina: normal appearance of the vagina, normal palpation, no lesions and no masses Speculum Exam - Cervix: normal appearance of the cervix, normal palpation, no lesions, no masses and Cervical tenderness present Bimanual exam- vagina & uterus: normal bimanual exam, normal palpation, uterine size normal, normal palpation, uterine shape normal, Cervical tenderness present, non-tender, cervical motion tenderness and Uterine tenderness Bimanual Exam- Adnexa, other: normal adnexae Back/Spine/Pelvis Back: no CVA tenderness Results AMB Test Urine AMB Test Urine Negative Last Edit by Chayo Kumar CMA on 11:56 AMB Urinalysis Dipstick UR Leukocytes Negative Last Edit by Chayo Kumar, LEAD FURNACE OPERATOR on 06/09/24 11:56 UR Nitrite Negative Last Edit by Chayo Kumar, LEAD FURNACE OPERATOR on 06/09/24 11:56 UR Urobilinogen Normal Last Edit by Chayo Kumar, LEAD FURNACE OPERATOR on 06/09/24 11:56 UR Protein Negative Last Edit by Chayo Kumar, LEAD FURNACE OPERATOR on 06/09/24 11:56 UR Ph 6.0 Last Edit by Chayo Kumar, LEAD FURNACE OPERATOR on 06/09/24 11:56 UR Blood Negative Last Edit by Chayo Kumar, LEAD FURNACE OPERATOR on 06/09/24 11:56 UR Specific [place] 1.020 Last Edit by Chayo Kumar, LEAD FURNACE OPERATOR on 06/09/24 11:56 UR Ketone Negative Last Edit by Chayo Kumar CMA on 06/09/24 11:56 UR Bilirubin Negative Last Edit by Chayo Kumar, LEAD FURNACE OPERATOR on 06/09/24 11:56 UR Glucose Negative Last Edit by Chayo Kumar LEAD FURNACE OPERATOR on 06/09/24 11:56 Results Reviewed Results Reviewed: Laboratory Last Values Urine pH (Clinic) 6.0 06/09/24 11:53 Specific [place] (Clinic) 1.020 06/09/24 11:53 Ur Protein (Clinic) Negative 06/09/24 11:53 Ur Ketones (Clinic) Negative 06/09/24 11:53 Urine Blood (Clinic) Negative 06/09/24 11:53 Urine Nitrite Negative 06/09/24 11:53 Urine Bilirubin (Clinic) Negative 06/09/24 11:53 Urobilinogen (Clinic) Normal 06/09/24 11:53 Leukocyte Esterase (Clinic) Negative 06/09/24 11:53 Urine Glucose (Clinic) Negative 06/09/24 11:53 Tst Clinic Negative 06/09/24 11:53 Assessment & Plan Assessment & Plan (1) Endometritis: Code(s): N71.9 - Inflammatory disease of uterus, unspecified Category: Medical Plan: Urine dip and test done in the office was negative. Pelvic ultrasound ordered stat. Ceftriaxone 500 mg IM, doxycycline 100 mg p.o. b.i.d. with metronidazole 500 mg p.o. b.i.d. for 14 days. Instructions given the patient to call in case of fever above 100.4, nausea or vomiting, persistent or worsening of pelvic pain, and to schedule a follow-up appointment in a week. All questions answered, the patient verbalized understand Orders: Orders AMB HCG Urine Test Today Z32.02 - Encounter for test, result negative AMB Urinalysis Dipstick Today R10.2 - Pelvic and perineal pain AMB Ceftriaxone Injection Today N71.9 - Inflammatory disease of uterus, unspecified Medications: New ceftriaxone 500 mg IM ONCE 1 ea 0RF Endometritis N71.9 - Inflammatory disease of uterus, unspecified metronidazole 500 mg PO BID 14 days 28 tabs 0RF doxycycline hyclate 100 mg PO BID 14 days 28 caps 0RF Coding Level of Care Code Est Pt Level 3 (06470) Diagnoses Endometritis N71.9
[2024-06-09 11:54] VITALS: TEMP 36.4; BMI 29.5
== END 2024-06-09 13:47 | disposition home or self-care (01) ==
LOC: HO.HWS 11:37
PROVIDERS: PCP Internal Medicine; Visit Provider Obstetrics & Gynecology
DX: N71.9 Inflammatory disease of uterus, unspecified (principal); Z32.02 Encounter for pregnancy test, result negative; R10.2 Pelvic and perineal pain
CPT/HCPCS: 99213

== ENCOUNTER 2024-06-30 15:21 | Outpatient (AMB) | payer MEDICAID, SELFPAY ==
--- NOTE | 2024-06-30 15:22 | A.OFFVIS_ITS ---
Intake Visit Reasons: post op Allergies No Known Allergies [No Known Allergies*] Allergy (Verified 06/09/24 11:55) none Allergy (Unknown, Uncoded 06/09/24 11:55) none HPI Comments Details: The patient schedule telehealth visit post hysteroscopy D&C no complaints minimal vaginal bleeding no feverishness chills or abdominal pain. Intraoperative findings showed normal endometrial cavity The pathology showed the following: Benign proliferative endometrium and scant benign endocervical glandular mucosa; no atypia or carcinoma. The following workup was done.: H&H= 11.2/32.7 TSH, hCG, GC and chlamydia were negative. Co testing was done was ascus/HPV negative Colpo biopsy ECC/EMB showed the following: A. Endometrium, biopsy: Benign late secretory endometrium with scattered inactive/poorly-developed glands and focal stromal collapse; no atypia or carcinoma. B. Endocervix, curettage: Endocervical glandular mucosa; negative for dysplasia. C. Cervix, 11:00, biopsy: Low-grade squamous intraepithelial lesion (mild dysplasia, SARAH 1), and endocervical glandular mucosa with inflammation. D. Cervix, 12:00, biopsy: Squamous mucosa with reactive changes; negative for dysplasia; no endocervical glandular component present. Comment: (A): Some fragments may be derived from benign functional polyps Mammogram was BI-RADS 1 Pelvic ultrasound showed the following: Uterus: The uterus is anteverted and measures 10.7 x 5.0 x 5.4 cm. The double wall endometrium is abnormal measuring 13 mm in thickness. The endometrium appears heterogeneous with some cystic areas. The uterus is smooth in contour and has normal myometrial echogenicity. No visible fibroid. Adnexa: Both ovaries are visualized. There is normal color flow to the adnexa. There is no ovarian torsion. There is a small amount of free fluid in the pelvis similar to the prior CT. Right ovary measures 2.5 x 1.2 x 2.5 cm. Left ovary measures 2.5 x 1.2 x 2.1 cm. [facility] Medical History Chronic UTI Gassiness GERD (gastroesophageal reflux disease) H. 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 Sexual orientation: Straight/Heterosexual Gender identity: Female Female Reproductive History Menstrual Age of Menarche: 11 Review of Systems Const All systems reviewed & are unremarkable except as noted in HPI and below Reports as per HPI and Reports no additional complaints GI Reports no additional complaints Reports no additional complaints Telehealth Telehealth Telehealth Platform: Telephone Location of provider rendering services: practice address Location of patient: address on file Patient Identification confirmed using: Name, : Yes Telehealth method: video Patient verbally consented to treatment: Yes Patient verbally consented to billing insurance company: Yes Patient informed of any privacy concerns related to visit: Yes Assessment & Plan Assessment & Plan (1) Abnormal uterine bleeding (AUB): Code(s): N93.9 - Abnormal uterine and vaginal bleeding, unspecified Category: Medical Plan: Discussed with the patient the results of the work up done and options of treatment including Lysteda, control pills, Mirena IUD, endometrial ablation and hysterectomy. All pros, cons, risks and benefits if each option was discussed with the patient and the patient decided to go ahead with Mirena IUD so a more detailed discussion about it was conducted including mechanism of action, risks (uterine perforation, infection, injury to bladder, bowel, displacement, and others) benefits (hypo menorrhea, amenorrhea, ...). GC/CT were taken and the patient was instructed to schedule Mirena IUD insertion on day 1-5 of next cycle . All questions answered, the patient verbalized understanding (2) SARAH I (cervical intraepithelial neoplasia I): Code(s): N87.0 - Mild cervical dysplasia Category: Medical Plan: Discussed with the patient the pathology results of the colposcopy biopsies & endocervical curettage ( mild dysplasia-SARAH 1). Discussed with the patient the sensitivity specificity, positive and negative predictive value in detecting cervical cancer in addition discussed the regression, persistence and progression rates. Recommended co-testing in 12 months, if cytology and or HPV are abnormal will proceed was colposcopy biopsy and endocervical curettage, if lesions gets worse or stays persistent for 2 years will proceed with loop electric excision procedure. Instructions given to the patient to schedule a co test appointment in 1 year. All questions answered the patient verbalized understanding. I spent a total of 20 minutes reviewing the chart, talking to the patient via video and documenting in the medical record. Coding Level of Care Code Tele Est Pt Level 3 (97449) Diagnoses Abnormal uterine bleeding (AUB) N93.9 SARAH I (cervical intraepithelial neoplasia I) N87.0
== END 2024-06-30 15:38 | disposition home or self-care (01) ==
LOC: HO.HWS 15:21
PROVIDERS: PCP Internal Medicine; Visit Provider Obstetrics & Gynecology
DX: N93.9 Abnormal uterine and vaginal bleeding, unspecified (principal); N87.0 Mild cervical dysplasia
CPT/HCPCS: 99213

== ENCOUNTER 2024-06-30 16:13 | Outpatient (REF) | payer MEDICAID, SELFPAY ==
[2024-06-30 17:48] LABS: Appearance Urine Clear; Color Urine Yellow; Glucose Urine UA Negative (Negative); Leukocyte Esterase Urine Negative (Negative); Nitrite Urine Negative (Negative); PH 5.5 (5.0-9.0); Specific Gravity - Urine 1.025 (1.005-1.025); Urine Blood Negative (Negative); Urine Ketones Negative (Negative); Urine Protein Negative (Neg-Trace)
[2024-06-30 17:55] LABS: Bacteria Urine None Seen (None Seen); Hyaline Casts Urine 0-2 /LPF (0-2); RBC Urine 0-2 /HPF (0-2); Squamous Epithelial Cell Urine 0-2 /HPF (0-2); WBC Urine 0-5 /HPF (0-5)
== END 2024-06-30 16:14 | disposition home or self-care (01) ==
LOC: HO.CHCLNP 16:13
PROVIDERS: Visit Provider Internal Medicine
DX: M54.50 Low back pain, unspecified (principal)
CPT/HCPCS: 81001

== ENCOUNTER 2024-08-07 14:45 | Outpatient (REF) | payer MEDICAID, SELFPAY | END 2024-08-07 14:46 | disposition home or self-care (01) | LOC: HO.MAMMO 14:45 | PROVIDERS: PCP Internal Medicine; Visit Provider Internal Medicine | DX: Z12.31 Encounter for screening mammogram for malignant neoplasm of breast (principal) | CPT/HCPCS: 77063; 77067 ==

== ENCOUNTER → 2024-08-07 15:00 | Outpatient (BNV) | payer MEDICAID, SELFPAY | PROVIDERS: PCP Internal Medicine; Visit Provider Internal Medicine | DX: Z12.31 Encounter for screening mammogram for malignant neoplasm of breast (principal) | CPT/HCPCS: 77063; 77067 ==

== ENCOUNTER 2024-11-18 06:53 | Emergency (ER) | payer MEDICAID, SELFPAY ==
--- NOTE | ~2024-11-18 | XR_ITS ---
EXAMINATION: XR LUMBOSACRAL SPINE CLINICAL INFORMATION: new left sided sciatica COMPARISON: None available. TECHNIQUE: Three views of the lumbosacral spine. FINDINGS: No acute cortical disruption or malalignment. Rudimentary ribs at L1. Sclerosis at the endplates of L5 and S1. XR/XR lumbar spine 2-3V IMPRESSION: Mild spondylosis at L5-S1. Electronically signed by: Afshin Del Castillo MD 11/18/2024 09:42 AM EDT
[2024-11-18 07:06] VITALS: BP 129/78; PULSE 80; RESP 16; TEMP 36.5; O2SAT 99; BMI 30.7
[2024-11-18 07:42] LABS: Appearance Urine Clear; Color Urine Yellow; Glucose Urine UA Negative (Negative); Leukocyte Esterase Urine Small (1+) (Negative); Nitrite Urine Negative (Negative); UMIC TRIGGER UACC YES; Urine Blood Negative (Negative); Urine Ketones Negative (Negative); Urine Protein Negative (Neg-Trace)
--- OUTSIDE RECORDS SUMMARY | 2024-11-18 07:42 | XMS_ITS | Clinical Summary ---
Author Organization [employer] Address [address] [facility] [address] [place] [address] Care Team Providers Care Quill Winder Name Role Phone Myron Rodriguez MD Primary Care Prov ider Allergies No known active allergies Medications albuterol 108 (90 Base) MCG/ACT inhalerIndicatio ns:Cough in adult Inhale 2 puffs every 4 (four) hours if needed for wheezing. 18 g 2 Active Blood Pressure kit 1 each 2 times daily. 1 kit 4 02/17/20 25 Active Omeprazole 20 MG tablet delayed-release Take 20 mg by mouth Once per day. 30 tablet 4 Active ibuprofen 400 MG tabletIndication s:Endometriosis Take 1 tablet (400 mg) by mouth every 6 (six) hours if needed for mild pain. 60 tablet 3 4 Active cetirizine (ZyrTEC) 10 MG tablet Take 1 tablet (10 mg) by mouth Once per day. 30 tablet 11 4 04/08/20 25 Active Homeopathic Products (Zinc) lozenge Dissolve 1 lozenge in the mouth every 4 (four) hours if needed (sore throat). 84 lozenge 4 Active SUMAtriptan (Imitrex) 25 MG tabletIndication s:Other migraine without status migrainosus, not intractable Take 1 tablet (25 mg) by mouth 1 (one) time if needed for migraine for up to 9 doses. May repeat dose once in 2 hours if no relief. Do not exceed 2 doses in 24 hours. 9 tablet 4 Active methocarbamol (Robaxin) 750 MG tabletIndication s:Acute left-sided low back pain without sciatica Take 1 tablet (750 mg) by mouth 4 times daily for 10 days. 40 tablet 4 Active Active Problems Problem Noted Date Diagnosed Date Pharyngitis 03/25/2024 Assessment & Plan (04/08/2024 8:20 PM EDT): Patient with multiple episode, blood test came back negative, on examination no erythema, no lesion were apreciated, she continue with on-off pain, she was referred to ent, will follow up reccomendations Assessment & Plan (03/25/2024 4:32 PM EDT): Negative for Covid and Strep; Referral to ENT for further investigation. Prescribing Zinc Lozenges for Sx. Ordering Lab work and Mononucleosis test for further evaluation. Will consider Gonorrhea and Chlamydia testing next visit. Relevant Medication Homeopathic Products (Zinc) Lozenges Obstructive sleep apnea syndrome 08/11/2023 Assessment & Plan (08/11/2023 10:49 AM EST): Stop bang score 3 points, will refer for sleep apnea test. Vaginal macho 05/15/2023 Assessment & Plan (05/15/2023 4:04 PM EDT): Patient complains of a white discharge, odorless, will prescribe fluconazole, call back if not improving Encounter for screening mamm ogram for malignant neoplasm of breast 05/15/2023 Cystitis 07/10/2022 Recurrent urinary tract infection 07/10/2022 Endometriosis 08/04/2018 Encounters Date Type Department Care Team Description 11/17/2024 Telephone [facility] PEDS [address] [place] [address] Myron Rodriguez MD No Show 11/17/2024 Telephone [facility] MEDICINE [address] [place], [place] [phone] Myron Rodriguez MD Nurse Triage 10/09/2024 Population Health Risk Score [facility] Department [address] [id number] Provider, Population Health Generic from Last 3 Months Immunizations Name Administration Dates Next Due Hep B, adult 03/25/2024,11/05/2022,10/17/2021 Influenza injectable quadriv alent preservative free 07/19/2015 Influenza, seasonal, injecta ble, preservative free 05/09/2017 Tdap 07/19/2015 Social History Tobacco Use Types Packs/Day Years Used Date Smoking Tobacco: Never Smokeless Tobacco: Never Tobacco Cessation:Counseling Given: Not Answered Alcohol Answer Date Recorded How often do you have a drink containing alcohol ? 1 07/11/2022 How many drinks containing a lcohol do you have on a typical day when you are drinking? 0 07/11/2022 How often do you have six or more drinks on one occasion? 0 07/11/2022 Depression Answer Date Recorded Patient Health Questionnaire-9 Score 6 08/08/2023 Patient Health Questionnaire-9 Score 6 08/08/2023 Last PHQ-9: Questionnaire Data Not on file 0 08/08/2023 Housing Stability Answer Date Recorded What is your housing situation today? I have cristi torres 05/15/[address] you li ve. Do you have problems with any of the following? None of the above 05/15/2023 Food Insecurity Answer Date Recorded Within the past 12 months, y ou worried that your food would run out before you got money to buy more: Never True 05/15/2023 Within the past 12 months,th e food you bought just didn't last and you didn't have enough money to get more: Never True Transportation Answer Date Recorded In the past 12 months, has l ack of transportation kept you from medical appts, meetings, work or from getting things needed for daily living? No 05/15/2023 Utilities Answer Date Recorded In the past 12 months, has t he electric, gas, oil or water company threatened to shut off services in your home? No 05/15/2023 Depression Answer Date Recorded Patient Health Questionnaire-2 Score 0 08/08/2023 Comments Unknown Sex and Gender Information Value Date Recorded Sex Assigned at Female 05/28/2022 10:17 AM EDT Legal Sex Female 10:17 AM EDT Gender Identity Female 05/28/2022 10:17 AM EDT Sexual Orientation Straight 05/28/2022 10 :17 AM EDT Last Filed Vital Signs Vital Sign Reading Time Taken Comments Blood Pressure 143/83 06/30/2024 2:04 PM EST Pulse 92 06/30/2024 2:04 PM EST Temperature 36.8 ??C (98.2 ??F) 06/30/2024 2:04 PM ES T Respiratory Rate 14 06/30/2024 2:04 PM EST Oxygen Saturation 96% 06/30/2024 2:04 PM EST Inhaled Oxygen Concentration - - Weight 71.8 kg (158 lb 3.2 oz) 06/30/2024 2:04 P M EST Height 162.6 cm (5' 4 ) 06/30/2024 2:04 PM EST Body Mass Index 27.15 06/30/2024 2:04 PM EST Plan of Treatment Health Maintenance Due Date Last Done Comments Alcohol/Substance Use Screening 1995 Family Planning (PISQ) 1998 COVID-19 Vaccine ( season) 2024 Influenza Vaccine (#1) 2024 05/09/2017, 2014 SDOH Screening 05/15/2024 05/15/2023 Depression Screening 08/08/2024 08/08/2023, 08/08/19 24 Tobacco Screening 06/30/2025 06/30/2024 DTaP/Tdap/Td Vaccines (2 - Td or Tdap) 07/19/2025 07/19/2015 Pap Smear 01/09/2026 01/09/2023, 05/31, 06/27/2020 Mammogram 08/07/2026 08/07/2024, 10/2023, 01/14/2018 Cervical Cancer Screening 01/10/2028 HPV/Cotest 01/10/2028 01/09/2023, 06/27/2020 Zoster Vaccines (1 of 2) 2033 RSV Patients and Patients Aged 60 years or older (1 - 1-dose 75+ series) 2058 Hepatitis C Screening Completed 01/09/2023 , 10/10/2021, 09/09/2019 HIV Screening Completed 07/18/2023, 12/27, 10/10/2021, Additional history exists Hepatitis B Vaccines Completed 03/25/2024, 11/05/2022, 10/17/2021 HIB Vaccines Aged Out No longer eligi ble based on patient's age to complete this topic HPV Vaccines Aged Out No longer eligi ble based on patient's age to complete this topic Hepatitis A Vaccines Aged Out No long er eligible based on patient's age to complete this topic IPV Vaccines Aged Out No longer eligi ble based on patient's age to complete this topic Meningococcal Vaccine Aged Out No anjali wilfred eligible based on patient's age to complete this topic Pneumococcal Vaccine: Pediatrics (0 to 5 Years) and At-Risk Patients (6 to 49) Years) Aged Out No longer eligible based on patient's age to complete this topic RSV under 20 months Aged Out No longe r eligible based on patient's age to complete this topic Rotavirus Vaccines Aged Out No longer eligible based on patient's age to complete this topic Procedures Procedure Name Priority Date/Time Associated Diagnosis Comments BI MAMMOGRAM SCREENING TOMOSYNTHESIS BILATERAL Routine 08/07/2024 3:00 PM EST HIV 1/2 ANTIGEN/ANTIBODY, FOURTH GENERATION W/RFL Routine 07/18/2023 8:29 AM EST Other fatigue HEPATITIS C ANTIBODY Routine 01/09/2023 12:20 PM EDT HPV MRNA E6/E7 REFLEX TO HPV 16, 18/45 Routine 01/09/2023 11:56 AM EDT PAP SMEAR Routine 01/09/2023 11:56 AM EDT from Last 3 Months or Most Recently Relevant to Health Maintenance Results * BI Mammogram Screening Tomosynthesis Bilateral (08/07/2024 3:00 PM EST) Anatomical Region Laterality Modality Breast Bilateral Mammography 08/07/2024 3:00 PM EST Narrative 08/17/2024 11:37 AM EST ? [facility] ? [address] ?[place] [address] ? Mammography Report ? Signed ? Patient: Guy Zapata,Elizabeth ?MR#: [id number] ?? [id number] ? : 1985 ?Acct:[id number] ? Age/Sex: 39 / F ?ADM Date: /10/25 ? Loc: HO.MAMMO ? Attending Dr: Myron Cano MD ? Ordering Physician: Myron Rodriguez MD ?Res ?? ults: 1Negative ? Date of Service: 08/07/24 ?Follow Up: 1 Year From Orig ?? inal Mammogram ? Procedure(s): MM tomosynthesis screening BI ?? Accession Number(s): [id number] ? cc: Stan Sr MD; Myron Rodriguez MD ? EXAMINATION: ?? MM SCREENING DIGITAL BREAST TOMOSYNTHESIS, BILATERAL ? CLINICAL INFORMATION: ? Screening. Asymptomatic. ? COMPARISON: ?? Mammography: Comparison is made with available priors ? TECHNIQUE: ?? Digital breast mammography with tomosynthesis is performed in both the ?? craniocaudal and mediolateral oblique views along with computer-aided ?? detection (CAD). ? FINDINGS: ?? There are scattered areas of fibroglandular density (ACR BI-RADS breast ?? composition Category b). ? There are no significant masses, abnormal calcifications, or other ?? abnormalities. ? MM/MM tomosynthesis screening BI ?? IMPRESSION: ?? No mammographic evidence of malignancy. ? ASSESSMENT: ? BI-RADS BI-RADS 1 - Negative ? RECOMMENDATION: ?? Routine annual mammography screening. ? 1 year F/U ? This examination should not preclude the clinical evaluation of a ?? suspicious palpable abnormality. ? This patient's information was entered into a reminder system with a ?? target due date for their next mammogram. ? Electronically signed by: ??Elena Gonzalez DO ??08/17/2024 11:34 AM EST ?? RP ? Dictated By: ?Elena Gonzalez DO ? Signed By: ?<Electronically signed by Elena Gonzalez, DO in OV> ? 08/17/24 1134 ? DD/ 1500 ? TD/TT: 08/07/24 1515 ? Grade And Center Marker: ? Procedure Note Donotaprilinterpreter, Image - 08/17/2024 [facility] [address] [place], [place] [address] Mammography Report Signed Patient: Elizabeth BaezMR#: [id number] : 1985Acct:[id number] Age/Sex: 39 / FADM Date: 08/07/24 Loc: HO.MAMMO Attending Dr: Myron Cano MD Ordering Physician: Myron Rodriguez ults: 1Negative Date of Service: 08/07/24Follow Up: 1 Year From Orig inal Mammogram Procedure(s): MM tomosynthesis screening BI Accession Number(s): [id number] cc: Stan Sr MD; Myron Rodriguez MD EXAMINATION: MM SCREENING DIGITAL BREAST TOMOSYNTHESIS, BILATERAL CLINICAL INFORMATION: Screening. Asymptomatic. COMPARISON: Mammography: Comparison is made with available priors TECHNIQUE: Digital breast mammography with tomosynthesis is performed in both the craniocaudal and mediolateral oblique views along with computer-aided detection (CAD). FINDINGS: There are scattered areas of fibroglandular density (ACR BI-RADS breast composition Category b). There are no significant masses, abnormal calcifications, or other abnormalities. MM/MM tomosynthesis screening BI IMPRESSION: No mammographic evidence of malignancy. ASSESSMENT: BI-RADS BI-RADS 1 - Negative RECOMMENDATION: Routine annual mammography screening. 1 year F/U This examination should not preclude the clinical evaluation of a suspicious palpable abnormality. This patient's information was entered into a reminder system with a target due date for their next mammogram. Electronically signed by: Elena Gonzalez DO 08/17/2024 11:34 AM EST Dictated By: Elena Gonzalez DO Signed By: <Electronically signed by Elena Gonzalez DO in OV> 08/17/24 1134 DD/ 1500 TD/TT: 08/07/24 1515 Grade And Center Marker: us Myron Cano MD IMG BI PROCEDURES Final Result * HIV-1/2 Antigen and Antibodies, Fourth Generation, with Reflexes (07/18/2023 8:29 AM EST) Pathologist [facility] HIV AB/AG Nonreactive Nonreactive [facility] Comment:HIV-1 p24 Ag and/or HIV-1/HIV-2 Ab not detected.A test result that is nonreactive does not exclude thepossibility of exposure to or infection with HIV-1 and/orHIV-2. Nonreactive results in this assay for individualswith prior exposure to HIV-1 and/or HIV-2 may be due toantigen and antibody levels that are below the limit ofdetection of this assay.The [employer] HIV Ag/Ab Combo assay result andsupplemental assay results should be interpreted inconjunction with the patient's clinical presentation,history and other laboratory results. If the results areinconsistent with clinical evidence, additional testing issuggested to confirm the result. Blood Venous blood specimen / Unknown 07/18/2023 8:29 AM EST 07/18/2023 2:23 PM EST us Stan Sr MD LAB BLOOD ORDERABLES Final Result [facility] [address] [place] [phone] * Hepatitis C Ab (01/09/2023 12:20 PM EDT) Hepatitis C Antibody Nonreactive Nonreactive [facility] Comment:Antibodies to HCV no t detected; does not exclude early acuteHCV infection. 01/09/2023 12:2 0 PM EDT 01/09/2023 12:20 PM EDT us [facility] External Provider LAB BLO OD ORDERABLES Final Result [facility] [address] [place] [address] [phone] * Pap Smear (01/09/2023 11:56 AM EDT) 01/09/2023 11:5 6 AM EDT 01/10/2023 8:00 AM EDT Narrative [facility] - 02/01/2023 10:54 AM EDT ----- ------- Name: Elizabeth Baez ? Age/Sex: 37/F ? : 1985 Unit#: [id number] ?? Attend Dr: Carole Garcia CNM ?Re01/09/23 ?Status: DEP REF ? Location: HO.LNP ?Disch: ? ----- ------- SPEC : [id number] ? RECD: 01/10/23 ? STATUS: ??SOUT ? REQ NUM: [id number] ? JIMMY: 01/09/23 ? SUBM DR: Carole Garcia CNM ? ENTERED: ??01/11/23 ?SP TYPE: Pap Smr ?OTHR DR: BURT SANCHES MD ? ORDERED: ??Pap Smear, PAP path review ? Interpretation ?? General Category: ?? Epithelial cell abnormality. ?? Adequacy: ?Endocervical component present. ?? Interpretation: ?Atypical squamous cells of undetermined significance. ? HPV mRNA E6/E7: ?Not Detected ? This assay detects E6/E7 viral messenger RNA (mRNA) from 14 high-risk HPV types (16, 18, ?? 31, 33, 35, 39, 45, 51, 52, 56, 58, 59, 66, 68) ? HPV testing performed by [facility], [place], [place]. ??See reference laboratory ?? portion of the EMR for entire report. ?Clinical Information LMP: 12/27/22 Previous PAP test: 2016, WNL ? Material Received ?? ThinPrep-Cervical Copies To: ?? BURT SANCHES MD ?? [address] ?? [place] [address] ? Carole Garcia ?? [address] ?? [place] ?? [phone] ----- ------- Signed (signature on file) Iggy Hudson MD 02/01/23 1054 ? ----- ------- ? END OF REPORT ? us [facility] External Provider LAB [facility] OLOG ORDERABLES Final Result [facility] [address] [place] [address] [phone] from Last 3 Months or Most Recently Relevant to Health Maintenance Insurance [employer] Care Teams Quill Winder Relationship Specialty Start Date End Date Myron Rodriguez MD [address] [place] [phone] PCP - General Internal Medicine 12/27/19
--- OUTSIDE RECORDS SUMMARY | 2024-11-18 07:42 | XMS_ITS | Encounter Summary ---
Author Organization [employer] Address [address] [place] [address] 7 [place] [address] Care Team Providers Care Legal Word Processor Name Role Phone Myron Rodriguez MD Primary Care Prov ider Reason for Visit * Reason Onset Date Comments No Show 11/17/2024 Encounter Details Date Type Department Care Team ([facility] Contact Info) Description 11/17/2024 Telephone [facility] MED & PEDS [address] [place] [address] Myron Rodriguez MD [address] [place] [address] No Show Social History Tobacco Use Types Packs/Day Years Used Date Smoking Tobacco: Never Smokeless Tobacco: Never Alcohol Answer Date Recorded How often do [...] Orientation Straight 05/28/2022 10 :17 AM EDT documented as of this encounter Miscellaneous Notes * Telephone Encounter - Chastity Gibson - 11/17/2024 12:07 PM EDT 11/17/24 no show documented in this encounter Plan of Treatment Not on file documented as of this encounter Visit Diagnoses Not on filedocumented in this encounter Additional Health Concerns Assessment Noted Time PHQ-9 Depression Total Score: 6 08/08/19 24 4:39 PM EST documented as of this encounter Care Teams Legal Word Processor Relationship Specialty Start Date End Date Myron Rodriguez MD [address] [place] [phone] PCP - General Internal Medicine 12/27/19 documented as of this encounter
--- OUTSIDE RECORDS SUMMARY | 2024-11-18 07:42 | XMS_ITS | Encounter Summary ---
Author Organization [employer] Address [address] [place] [address] Care Team Providers Care Sales Advisory Manager Name Role Phone Myron Rodriguez MD Primary Care Prov ider Reason for Visit * Reason Onset Date Comments Call Back Request 01/13/2024 Encounter Details Date Type Department Care Team ([facility] st Contact Info) Description 01/13/2024 Telephone [facility] MEDICINE [address] [place], [place] [phone] Myron Rodriguez MD [address] [facility] [address] [place] [address] Call Back Request Social History Tobacco Use Types Packs/Day Years [...] encounter Miscellaneous Notes * Telephone Encounter - Victoria Gibson RN - 01/13/2024 9:22 AM EDT No notes listed that anyone has tried to reach to pt. * Telephone Encounter - Latrell Marcos - 01/13/2024 9:13 AM EDT Tc from patient calling states has numerous missed calls stating had a PAP appt for 01/12 @ 3 however functional tester typewriters does not see anything noted or appt for 01/12 documented in this encounter Plan of Treatment Not on file documented as of this encounter Visit Diagnoses Not on filedocumented in this encounter Additional Health Concerns Assessment Noted Time PHQ-9 Depression Total Score: 6 08/08/19 24 4:39 PM EST documented as of this encounter Care Teams Sales Advisory Manager Relationship Specialty Start Date End Date Myron Rodriguez MD [address] [place] [address] PCP - General Internal Medicine 12/27/19 documented as of this encounter
--- OUTSIDE RECORDS SUMMARY | 2024-11-18 07:42 | XMS_ITS | Encounter Summary ---
Author Organization [employer] Address [address] [facility] 7t [place] [address] Care Team Providers Care Automotive Collision Estimator Name Role Phone Myron Rodriguez MD Primary Care Prov ider Reason for Visit * Reason Onset Date Comments Nurse Triage 11/17/2024 Encounter Details Date Type Department Care Team ([facility] st Contact Info) Description 11/17/2024 Telephone [facility] MEDICINE [address] [place], [place] [phone] Myron Rodriguez MD [address] [facility] [place] [address] Nurse Triage Social History Tobacco Use Types Packs/Day Years [...] encounter Miscellaneous Notes * Telephone Encounter - Vijaya Tripathi RN - 11/17/2024 10:37 AM EDT called pt to triage, spoke to pt through [employer] [facility]. pt states 2 days duration of urinary frequency, urgency, and burning. pt states also low back pain that radiates into the left hip. pt denies blood, fevers, strong odor, inability to urinate, or other associated symptoms. [facility] for [facility]. advised home care: rest, fluids, monitor temperature, and call backas needed. pt understands and agrees with plan. insurance verified. Protocol Used: Urinary Symptoms (Adult) Protocol-Based Disposition: See in Office or Video Visit Today or Tomorrow Video visit offer not recorded Positive Triage Question: * Patient wants to be seen * All higher-acuity triage questions were negative Care Advice Discussed: * Reasons To Call Back - Fever occurs - Pain or burning with urination - Unable to urinate and bladder feels full - You become worse * Telephone Encounter - Alice Land - 11/17/2024 8:43 AM EDT Symptoms: Urination Pain, Hip Pain - Not From Injury, Back Pain - Not From Injury, Leg Pain - Not From Injury Outcome: Schedule an urgent appointment (within 1 hour) or talk to a nurse or provider soon Reason: Trouble walking The caller accepted this outcome. [phone] mongolian documented in this encounter Plan of Treatment Not on file documented as of this encounter Visit Diagnoses Not on filedocumented in this encounter Additional Health Concerns Assessment Noted Time PHQ-9 Depression Total Score: 6 08/08/19 24 4:39 PM EST documented as of this encounter Care Teams Automotive Collision Estimator Relationship Specialty Start Date End Date Myron Rodriguez MD [address] [place] [phone] PCP - General Internal Medicine 12/27/19 documented as of this encounter
[2024-11-18 07:45] LABS: UPreg QC Valid YES; Urine Pregnancy NEGATIVE (NEGATIVE)
[2024-11-18 07:58] LABS: Bacteria Urine None Seen (None Seen); Hyaline Casts Urine 0-2 /LPF (0-2); RBC Urine 0-2 /HPF (0-2); Squamous Epithelial Cell Urine 0-2 /HPF (0-2); UACC Culture Trigger YES
[2024-11-18 08:37] LABS: MANUAL DIFF FLAG NO
--- NOTE | 2024-11-18 08:38 | ED_ITS ---
HPI - General Adult General Chief complaint: Abdominal Pain Stated complaint: lower abd pain Time Seen by Provider: 11/18/24 08:38 History of Present Illness ED Provider: Sandro DYKES narrative: The patient is a 39-year-old female who says that she has had low back pain for about 1 month. Over the last 2 weeks she has had the sense that the back pain is radiating to her left hip or buttock and down the back of her left leg as far as the knee. She also feels that sometimes the left leg seems to ?give out. ? She has had no fever, sweats, chills. She says over the last 24 hours she has had some urinary frequency and burning with urination. Related Data Home Medications ?Medication ?Instructions ?Recorded ?Confirmed ibuprofen 400 mg tablet 400 mg PO Q6H PRN pain 11/22/23 06/05/24 Previous Rx's ?Medication ?Instructions ?Recorded doxycycline hyclate 100 mg capsule 100 mg PO BID 14 days #28 caps 06/09/24 metronidazole 500 mg tablet 500 mg PO BID 14 days #28 tabs 06/09/24 acetaminophen 500 mg capsule 1,000 mg (2 x 500 mg) PO Q8H PRN 11/18/24 fever or pain #14 caps cephalexin 500 mg capsule 500 mg PO BID #10 caps 11/18/24 cyclobenzaprine 10 mg tablet 10 mg PO TID PRN muscle spasm #14 11/18/24 tabs ibuprofen 400 mg tablet 400 mg PO Q6H PRN pain #14 tabs 11/18/24 Allergies Allergy/AdvReac Type Severity Reaction Status Date / Time No Known Allergies Allergy Verified 11/18/24 07:11 [No Known Allergies*] none Allergy Unknown none Uncoded 06/09/24 11:55 Review of Systems 2 Review of Systems: Yes all other systems are reviewed and are negative [facility] Past Medical History Medical History Chronic UTI Gassiness GERD (gastroesophageal reflux disease) H. 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 She looks as though she is an ordinarily healthy 39-year-old but she looks acutely uncomfortable when she moves around. HENMT Other: Face is symmetrical, mucous membranes moist. Eyes General: appearance normal, both eyes and all related structures Neck Neck: Yes normal visual inspection, Yes full ROM and Yes no lymphadenopathy Resp Effort & Inspection: normal respiratory effort Auscultation: clear to auscultation bilaterally Cardio Rate: regular rate Rhythm: regular rhythm Heart sounds: S1 normal heart sound present and S2 normal heart sound present GI Other: Abdomen is soft and nontender Back/Spine/Pelvis Other: The patient has generalized tenderness across the lower back. Skin Other: The skin is dry and unremarkable Neuro Other: The patient is awake and alert with a normal mental status. Cranial nerves are intact. She has intact strength in her extremities although she seems to have pain with weight-bearing in the left leg. She has 2+ reflexes at the knees. I think her left ankle reflex may be slightly weak. She walks with a limp. She does not have a footdrop however. Extrem Other: No peripheral edema, no calf swelling or tenderness. Medications Administered Discontinued Medications Generic Name Dose Route Start Last Admin Trade Name Freq PRN Reason Stop Dose Admin Acetaminophen 975 mg 11/18/24 09:10 11/18/24 09:15 Acetaminophen 325 Mg Tablet PO 11/18/24 09:11 975 mg ONCE ONE Administration Cephalexin HCl 500 mg 11/18/24 10:54 11/18/24 11:05 Cephalexin 500 Mg Capsule PO 11/18/24 10:55 500 mg ONCE ONE Administration Ketorolac Tromethamine 30 mg 11/18/24 08:58 11/18/24 09:17 Ketorolac Tromethamine 30 Mg/Ml Vial IM 11/18/24 08:59 30 mg ONCE ONE Administration Medical Decision Making Medical Decision Making [facility] Narrative: The patient is a very pleasant 39-year-old who was ordinarily in fairly good health. She reports a history of previous UTIs and feels that she is currently having symptoms consistent with a UTI. Her urinalysis is mildly abnormal. Although the urinalysis is only mildly abnormal given her symptoms she will be treated with a course of cefazolin. Her more significant complaint is her lower back pain radiating down her left leg. I think she has sciatica. I think this is unrelated to her urinary symptoms. I do not think she has pyelonephritis. I suspect that her UTI and her back pain and left-sided sciatica are completely separate issues. The patient had a negative lumbar spine x-ray. The patient was given an injection of IM ketorolac with improvement in her pain. Her ability to walk improved. Will be discharged with prescriptions for acetaminophen, ibuprofen, and cyclobenzaprine that she may use as needed for pain. This is in addition to the cephalexin for her UTI. She should follow up with her PCP for further recommendations and ongoing care. She was given a work note for 1 week. Lab Data 11/18/24 08:29 11/18/24 08:29 Labs: Lab Results 11/18/24 11/18/24 Range/Units 07:31 08:29 WBC 11.4 H (4.8-10.8) X10*3/uL RBC 3.96 L (4.20-5.50) X10*6/uL Hgb 12.4 (12.0-16.0) g/dl Hct 35.2 L (37.0-47.0) % MCV 88.9 (80.0-98.0) fL MCH 31.3 (27.0-33.0) pg MCHC 35.2 H (31.0-35.0) g/dl RDW 12.3 (11.0-16.0) % Plt Count 360 (160-400) X10*3/uL MPV 9.5 (9.4-12.3) fL Immature Gran % (Auto) 1.0 H (0.0-0.4) % Neut % (Auto) 72.7 (45-73) % Lymph % (Auto) 17.7 L (20-40) % [place] % (Auto) 7.7 (2-11) % Eos % (Auto) 0.5 (0-4) % Baso % (Auto) 0.4 (0-2) % Lymph # (Auto) 2.0 (1.2-4.9) X10*3/uL [place] # (Auto) 0.9 (0.1-1.2) X10*3/uL Eos # (Auto) 0.1 (0.0-0.4) X10*3/uL Baso # (Auto) 0.1 (0.0-0.2) X10*3/uL Abs Immat Gran (auto) 0.11 H (0.00-0.03) X10*3/uL Absolute Neuts (auto) 8.3 (2.0-8.3) x10*3/uL Absolute Nucleated RBC 0.000 (0.0-0.012) X10*3/uL Nucleated RBC % (auto) 0.0 (0.0-0.2) /100WBC Sodium 138 (135-145) mmol/L Potassium 4.3 (3.3-5.1) mmol/L Chloride 105 (96-108) mmol/L Carbon Dioxide 26 (22-29) mmol/L Anion Gap 11 L (12-20) BUN 17 H (9-16) mg/dL Creatinine 0.72 (0.5-1.4) mg/dL Estim Creat Clear Calc 94.4 Estimated GFR > 60 Random Glucose 102 (60-115) mg/dL Calcium 9.4 (8.4-10.2) mg/dL Urine Color Yellow Urine Appearance Clear Urine pH 8.0 (5.0-9.0) Ur Specific [place] 1.020 (1.005-1.025) Urine Protein Negative (Neg-Trace) mg/dL Urine Glucose (UA) Negative (Negative) mg/dL Urine Ketones Negative (Negative) mg/dL Urine Blood Negative (Negative) Urine Nitrite Negative (Negative) Ur Leukocyte Esterase Small (1+) H (Negative) Urine RBC 0-2 (0-2) /HPF Urine WBC 6-10 (0-5) /HPF Ur Squamous Epith Cells 0-2 (0-2) /HPF Urine Bacteria None Seen (None Seen) Hyaline Casts 0-2 (0-2) /LPF Urine Test NEGATIVE (NEGATIVE) Discharge Plan Discharge Clinical Impression: Acute bilateral low back pain with left-sided sciatica, Urinary tract infection Patient Disposition: Home, Self-Care Instructions: Urinary Tract Infection in Women (ED), Sciatica (ED) Additional Instructions: Your urine testing suggest that it is possible you might have a urinary tract infection. You has been started on the antibiotic cephalexin. Please take this medication 2 times a day. A prescription has been sent to your pharmacy. Take another dose this evening. With regard to the pain that you were having in your left leg I think you have a condition known as sciatica. Sciatica can be very uncomfortable and can bother you for a few weeks. Usually sciatica gets better on its own with time. I have sent prescriptions for acetaminophen and ibuprofen which you may use as needed for pain. I have also sent a prescription for cyclobenzaprine, a muscle relaxant that may also be helpful. This medication can make you drowsy so do not drive if you are taking this medication. Please contact your regular doctor's office today to set up a follow up appointment to discuss your sciatica further. You may need more time off work if your symptoms remained severe. Additionally you may need physical therapy to help with recovery. Return to the emergency room if you feel significantly worse. Prescriptions: New cephalexin 500 mg capsule 500 mg PO BID Qty: 10 0RF cyclobenzaprine 10 mg tablet 10 mg PO TID PRN (Reason: muscle spasm) Qty: 14 0RF ibuprofen 400 mg tablet 400 mg PO Q6H PRN (Reason: pain) Qty: 14 0RF acetaminophen 500 mg capsule 1,000 mg PO Q8H PRN (Reason: fever or pain) Qty: 14 0RF No Action ibuprofen 400 mg tablet 400 mg PO Q6H PRN (Reason: pain) doxycycline hyclate 100 mg capsule 100 mg PO BID 14 Days Qty: 28 0RF metronidazole 500 mg tablet 500 mg PO BID 14 Days Qty: 28 0RF Referrals: Stan Sr MD [Primary Care Provider] - (left sided sciatica, UTI) Stand Alone Forms: Work/School Release Interventions: ED Discharge Assessment Last Done: 11/18/24 11:24 Discharge Date/Time: 11/18/24 11:31 Print Language: Trinidadian
[2024-11-18 08:41] LABS: Basophils Absolute Auto 0.1 X10*3/uL (0.0-0.2); Basophils Percent Auto 0.4 % (0-2); Eosinophils Absolute Auto 0.1 X10*3/uL (0.0-0.4); Eosinophils Percent Auto 0.5 % (0-4); Hematocrit 35.2 % (37.0-47.0); Hemoglobin 12.4 g/dl (12.0-16.0); Imm Gran Abs Auto 0.11 X10*3/uL (0.00-0.03); Lymphocytes Percent Auto 17.7 % (20-40); Mean Corpuscular HGB Conc 35.2 g/dl (31.0-35.0); Mean Corpuscular Hemoglobin 31.3 pg (27.0-33.0); Mean Corpuscular Volume 88.9 fL (80.0-98.0); Mean Platelet Volume 9.5 fL (9.4-12.3); Monocytes Absolute Auto 0.9 X10*3/uL (0.1-1.2); Monocytes Percent Auto 7.7 % (2-11); Neutrophils Absolute Auto 8.3 x10*3/uL (2.0-8.3); Neutrophils Percent Auto 72.7 % (45-73); Platelet Count 360 X10*3/uL (160-400); Red Blood Count 3.96 X10*6/uL (4.20-5.50); Red Cell Distribution Width 12.3 % (11.0-16.0); White Blood Count 11.4 X10*3/uL (4.8-10.8)
[2024-11-18 08:49] LABS: Anion Gap 11 (12-20); Blood Urea Nitrogen 17 mg/dL (9-16); Calcium 9.4 mg/dL (8.4-10.2); Carbon Dioxide 26 mmol/L (22-29); Chloride 105 mmol/L (96-108); Creatinine Clr Calc Pharmacy 94.4; Estimated Glomerular Filt Rate > 60; Glucose Random 102 mg/dL (60-115); Potassium 4.3 mmol/L (3.3-5.1); Sodium 138 mmol/L (135-145)
[2024-11-18] MEDS: Acetaminophen 325 MG TABLET 975 MG PO (09:15)
[2024-11-18] MEDS: Ketorolac Tromethamine 30 MG/ML VIAL IM (09:17)
[2024-11-18 10:10] VITALS: BP 121/72; PULSE 82; RESP 16; TEMP 36.7; O2SAT 99
[2024-11-18] MEDS: cephALEXin 500 MG CAPSULE PO (11:05)
[2024-11-18 11:24] VITALS: BP 121/72; PULSE 82; RESP 16; TEMP 36.7; O2SAT 99
== END 2024-11-18 11:31 | disposition home or self-care (01) ==
PROVIDERS: Emergency Provider Emergency Medicine; PCP Internal Medicine
DX: M54.32 Sciatica, left side (principal); N39.0 Urinary tract infection, site not specified
CPT/HCPCS: 36415; 72100; 80048; 81001; 81025; 85025; 87086; 87088; 87186; 96372; 99284; 99285; J1885

== ENCOUNTER → 2024-11-18 09:03 | Outpatient (BNV) | payer MEDICAID, SELFPAY | PROVIDERS: Emergency Provider Emergency Medicine; PCP Internal Medicine; Visit Provider Radiology Diagnostic Radiology | DX: M47.896 Other spondylosis, lumbar region (principal); M54.32 Sciatica, left side | CPT/HCPCS: 72100 ==

== ENCOUNTER 2025-02-02 15:35 | Outpatient (REF) | payer MEDICAID, SELFPAY ==
--- OUTSIDE RECORDS SUMMARY | 2025-02-02 16:00 | XMS_ITS | Encounter Summary ---
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 Name Role Phone Myron Rodriguez MD Primary Care Prov ider Reason for Visit * Reason Onset Date Comments Call Back Request 01/13/2024 Encounter Details Date Type Department Care Team ([facility] st Contact Info) Description 01/13/2024 Telephone [facility] [address] [place] [address] Myron Rodriguez MD [address] [place] [address] Call Back Request Social History Tobacco Use [...] PAP appt for 01/12 @ 3 however newswriter does not see anything noted or appt for 01/12 documented in this encounter Plan of Treatment Upcoming Encounters Date Type Department Care Team (Late st Contact Info) Description 02/08/2025 3:30 PM EDT Office Visit [facility] [address] [place], [place] [phone] Myron Rodriguez MD [address] [place] [address] documented as of this encounter Visit Diagnoses Not on filedocumented in this encounter Additional Health Concerns Assessment Noted Time PHQ-9 Depression Total Score: 6 08/08/19 24 4:39 PM EST documented as of this encounter Care Teams Glass Cutting Machine Feeder Relationship Specialty Start Date End Date Myron Rodriguez MD [address] [place] [id number] PCP - General Internal Medicine 12/27/19 documented as of this encounter
[2025-02-02 17:21] LABS: MANUAL DIFF FLAG NO
[2025-02-02 17:36] LABS: Hematocrit 34.6 % (37.0-47.0); Hemoglobin 11.8 g/dl (12.0-16.0); Imm Gran Abs Auto 0.07 X10*3/uL (0.00-0.03); Imm Gran Pct Auto 0.7 % (0.0-0.4); Lymphocytes Absolute Auto 3.6 X10*3/uL (1.2-4.9); Mean Corpuscular HGB Conc 34.1 g/dl (31.0-35.0); Mean Corpuscular Hemoglobin 30.6 pg (27.0-33.0); Mean Corpuscular Volume 89.6 fL (80.0-98.0); NRBC Abs Auto 0.000 X10*3/uL (0.0-0.012); NRBC Pct Auto 0.0 /100WBC (0.0-0.2); Platelet Count 419 X10*3/uL (160-400); Red Blood Count 3.86 X10*6/uL (4.20-5.50); White Blood Count 10.6 X10*3/uL (4.8-10.8)
[2025-02-02 18:08] LABS: Uric Acid 4.3 mg/dL (2.4-5.7)
== END 2025-02-02 15:36 | disposition home or self-care (01) ==
LOC: HO.CHCLDS 15:35
PROVIDERS: Visit Provider Nurse Practitioner Family
DX: M79.675 Pain in left toe(s) (principal)
CPT/HCPCS: 36415; 84550; 85025; 85652

== ENCOUNTER 2025-02-02 15:55 | Outpatient (REF) | payer MEDICAID, SELFPAY ==
--- NOTE | ~2025-02-02 | XR_ITS ---
EXAMINATION: XR FOOT, LEFT CLINICAL INFORMATION: painful joint of left big toe COMPARISON: None available. TECHNIQUE: AP, lateral, and oblique views of the left foot. FINDINGS: The bones and soft tissues are normal. No fracture. Alignment is anatomic. Joint spaces are maintained. XR/XR foot LT min 3V IMPRESSION: Normal left foot. Electronically signed by: Satya Davila MD 02/02/2025 04:15 PM EDT
== END 2025-02-02 15:56 | disposition home or self-care (01) ==
LOC: HO.XRAY 15:55
PROVIDERS: PCP Internal Medicine; Visit Provider Nurse Practitioner Family
DX: M79.675 Pain in left toe(s) (principal)
CPT/HCPCS: 73630

== ENCOUNTER → 2025-02-02 15:59 | Outpatient (BNV) | payer MEDICAID, SELFPAY | PROVIDERS: PCP Internal Medicine; Visit Provider Radiology Diagnostic Radiology | DX: M79.675 Pain in left toe(s) (principal) | CPT/HCPCS: 73630 ==